=== PATIENT | male | born 1935 | race Asian ===

== ENCOUNTER 2017-04-21 05:07 | Emergency (ER) | payer MEDICARE, OTHER ==
[2017-04-21] MEDS ORDERED: predniSONE 20 MG TABLET PO STA (05:15)
[2017-04-21] MEDS ORDERED: IPRATROPIUM/ALBUTEROL 3 ML NEB INH STA (05:15)
[2017-04-21] MEDS ORDERED: predniSONE 20 MG TABLET ONE (05:21)
[2017-04-21] MEDS ORDERED: IPRATROPIUM/ALBUTEROL 3 ML NEB INH ONE (05:24)
--- NOTE | 2017-04-21 05:34 | ED Physician Documentation ---
PD HPI DYSPNEA - Stated complaint Stated Complaint: SHORTNESS OF BREATH - Chief complaint Chief Complaint: Resp - History obtained from History obtained from: Patient, Family - History of Present Illness Timing - onset: How many days ago (3) Timing - onset during: Rest Timing - details: Gradual onset, Still present Inciting event(s): URI Improved by: O2, Inhaler/neb Associated symptoms: Cough, Wheezing Similar symptoms before: Work up / diagnostics, Treatment, Follow up Recently seen: Not recently seen - Additional information Additional information: Patient is a 81 year old male with a history of severe copd who is presenting to the emergency department for shortness of breath. patient states that for the last three days he has been progressively worse and has also felt congested. Patient states that he has been compliant with his medications. Patient denies any chest pain, and fevers, nausea or vomiting. Review of Systems Constitutional: denies: Fever, Chills Eyes: denies: Decreased vision Ears: denies: Ear pain, Drainage/discharge Nose: denies: Rhinorrhea / runny nose Throat: denies: Sore throat Cardiac: denies: Chest pain / pressure, Palpitations Respiratory: reports: Dyspnea, Cough, Wheezing GI: denies: Abdominal Pain, Nausea, Vomiting : denies: Dysuria, Frequency Skin: denies: Rash, Lesions Musculoskeletal: denies: Extremity pain, Extremity swelling Neurologic: denies: Generalized weakness, Focal weakness, Numbness Immunocompromised: denies: Immunocompromised PD PAST MEDICAL HISTORY - Past Medical History Cardiovascular: Hypertension Respiratory: COPD, Emphysema Endocrine/Autoimmune: HyPOthyroidism GI: None : Benign prostate hypertrophy, Retention, Indwelling catheter HEENT: Chronic vision loss Psych: None Musculoskeletal: None Derm: None - Past Surgical History Past Surgical History: Yes General: Colonoscopy Ortho: Other - Present Medications Home Medications: Ambulatory Orders Medication Instructions Recorded Confirmed Levothyroxine [Synthroid] 100 mcg PO DAILY 11/02/15 04/21/17 Losartan/Hydrochlorothiazide 1 tab PO DAILY 11/02/15 04/21/17 [Losartan-Hctz 100-12.5 mg Tab] Albuterol Sulfate [Proair Hfa] 8.5 inh INH TID 12/11/15 04/21/17 Prednisone 60 mg PO DAILY 5 Days 04/21/17 Tiotropium [place] [Spiriva] 1 inh INH DAILY 04/21/17 04/21/17 amLODIPine [Norvasc] 5 mg PO ONCE 04/21/17 04/21/17 - Allergies Allergies/Adverse Reactions: Allergies Allergy/AdvReac Type Severity Reaction Status Date / Time No Known Drug Allergies Allergy Verified 04/21/17 05:14 - Social History Does the pt smoke?: No Smoking Status: Former smoker Does the pt drink ETOH?: No Does the pt have substance abuse?: No - Immunizations Immunizations are current?: Yes - POLST Patient has POLST: No PD ED PE NORMAL - Vitals Vital signs reviewed: Yes - General General: Alert and oriented X 3, Well developed/nourished - HEENT HEENT: Atraumatic, PERRL, Moist mucous membranes - Neck Neck: Supple, no meningeal sign, No JVD - Cardiac Cardiac: RRR, No murmur - Abdomen Abdomen: Soft, Non tender, Non distended - Derm Derm: Normal color, Warm and dry, No rash - Extremities Extremities: No deformity, No tenderness to palpate, No edema - Neuro Neuro: Alert and oriented X 3, concrete puddler 2-12 intact, No motor deficit, No sensory deficit, Normal speech - Psych Psych: Normal mood, Normal affect PD ED PE EXPANDED - Respiratory Respiratory: Labored, Accessory mm use, Wheezing, Right upper lobe, Right middle lobe, Right lower lobe, Left upper lobe, Left lower lobe Results - Vitals Vitals: Vital Signs - 24 hr 04/21/17 04/21/17 04/21/17 05:11 05:30 06:08 Temperature 36.7 C Heart Rate 97 80 92 Respiratory 18 16 17 Rate Blood Pressure 130/89 H 111/74 O2 Saturation 95 94 Oxygen O2 Source Room air - Rads (name of study) chest x-ray Radiology: Final report received (hyperinflation, no infiltrates) PD MEDICAL DECISION MAKING - ED course Complexity details: reviewed old records, reviewed results, re-evaluated patient , considered differential, d/w patient, d/w family ED course: Patient was seen and examined at bedside. Patient was oxygenating well on room air. Patient was treated with three duonebs and prednisone 60mg. Patient was sent for imaging. When patient returned the results were reviewed. there was no sign of infiltrate or pneumonia. Patient stated that he was feeling much better and asking to go home. Patient was discharged without hypoxia in stable condition. Patient and family felt comfortable with the plan. Departure - Departure Disposition: 01 Home, Self Care Clinical Impression: Moderate COPD (chronic obstructive pulmonary disease), COPD exacerbation Condition: Good Instructions: COPD Dc Follow-Up: Carlos Smith MD [Primary Care Provider] - Within 3 Days Prescriptions: Prednisone 60 mg PO DAILY 5 Days Comments: Your symptoms today are being caused by a copd exacerbation. You had your first dose of steroids today and you will take them for the next five days. You should call your doctor today to schedule a follow up appointment this week. You should continue with your other copd therapies. You should return to the emergency department at any time for new, worsening or uncontrollable symptoms.
--- NOTE | 2017-04-21 05:39 | XRAY Preliminary Report ---
Exam: XR Chest 2 View PA/LAT IMPRESSION: COPD without acute process seen in the chest. [facility] SITE ID: [id number]
--- NOTE | 2017-04-21 05:41 | XRAY Report ---
EXAM: CHEST RADIOGRAPHY EXAM DATE: 04/21/2017 05:31 AM. CLINICAL HISTORY: Copd, cough. COMPARISON: 02/26/2011. TECHNIQUE: 2 views. FINDINGS: Lungs/Pleura: Large volumes. No focal opacities evident. No pneumothorax or pleural effusion. Mediastinum: Within exam limitations, cardiomediastinal contour is normal. Other: None. IMPRESSION: COPD without acute process seen in the chest. [facility] Referring Provider Line: [phone] SITE ID: [id number]
[2017-04-21 06:09] VITALS: BP 111/74
== END 2017-04-21 06:25 | disposition home or self-care (01) ==
LOC: ED 05:07
DX: J44.1 Chronic obstructive pulmonary disease with (acute) exacerbation (principal); I10 Essential (primary) hypertension; E03.9 Hypothyroidism, unspecified; N40.0 Benign prostatic hyperplasia without lower urinary tract symptoms; Z87.891 Personal history of nicotine dependence
CPT/HCPCS: 71020; 94640; 99283; 99284; J7512; J7620

== ENCOUNTER 2021-08-30 07:25 | Day surgery (SDC) | payer MEDICARE, OTHER ==
[~2021-08-30 07:25] MED LIST: CYCLOPENTOLATE 1% OPHTH DROPS 2 ML ONE; KETOROLAC 0.45% OPHTH DROPS ONE; PHENYLEPHRINE 2.5% OPHTH 2 ML DROPS ONE; PROPARACAINE 0.5% OPHTH DROPS 15 ML ONE
[2021-08-30] MEDS ORDERED: LACTATED RINGERS 1,000 ML IV ONE ×2 (07:46→08:57)
[2021-08-30] MEDS ORDERED: TRIAMCIN/MOXIFLOX OPHTHALMIC 0.6 ML VIAL IO ONE ×2 (07:50→08:50)
[2021-08-30] MEDS ORDERED: BRIMONIDINE 0.2% OPHTH DROPS 5 ML ONE (07:54)
[2021-08-30] MEDS ORDERED: TIMOLOL 0.5% OPHTH DROPS ONE (07:57)
[2021-08-30] MEDS ORDERED: HYDROmorphone 0.5 MG/0.5 ML SYRINGE IVP PRN (08:04)
[2021-08-30] MEDS ORDERED: NALOXONE 0.4 MG/ML VIAL IVP PRN (08:04)
[2021-08-30] MEDS ORDERED: METOCLOPRAMIDE 10 MG/2 ML VIAL IVP PRN (08:04)
[2021-08-30] MEDS ORDERED: ePHEDrine 50 MG/ML VIAL IVP PRN (08:04)
[2021-08-30] MEDS ORDERED: MORPHINE 2 MG/ML CARPUJECT IVP PRN (08:04)
[2021-08-30] MEDS ORDERED: ONDANSETRON 4 MG/2 ML VIAL IVP PRN (08:04)
[2021-08-30] MEDS ORDERED: ATROPINE ABBOJECT 1 MG/10 ML SYRINGE IVP PRN (08:04)
[2021-08-30] MEDS ORDERED: fentaNYL 100 MCG/2 ML VIAL IVP PRN (08:04)
--- NOTE | 2021-08-30 08:17 | ANESTHESIA ---
Pre-Anesthesia VS, & Labs - Diagnosis left eye cataract - Procedure left CATIOL Vital Signs: Temp Pulse Resp BP Pulse Ox 36.6 C 77 18 151/67 H 94 08/30/21 07:46 08/30/21 07:46 08/30/21 07:46 08/30/21 07:46 08/30/21 07:46 Height: 5 ft 5 in Weight (kg): 64 kg Body Mass Index: 23.4 BMI Classification: Healthy weight - NPO >8 hours - Lab Results Lab results reviewed: Yes Home Medications and Allergies Home Medications: Ambulatory Orders Fluticasone/Vilanterol [Breo Ellipta 100-25 Mcg INH] 1 each IH DAILY 08/29/21 Active Medications Atropine Sulfate (Atropine Abboject 1 Mg/10 Ml Syringe) 0.5 mg IVP Q5M PRN PRN Reason: Bradycardia Stop: 08/31/21 08:04 Ephedrine Sulfate (Ephedrine 50 Mg/Ml Vial) 10 mg IVP Q5M PRN PRN Reason: HYPOTENSION Stop: 08/31/21 08:04 Fentanyl (Fentanyl 100 Mcg/2 Ml Vial) 25 - 50 mcg IVP Q5M PRN PRN Reason: BREAKTHROUGH PAIN (2nd Choice) Stop: 08/31/21 08:04 Hydromorphone HCl (Hydromorphone 0.5 Mg/0.5 Ml Syringe) 0.2 - 0.6 mg IVP Q5M PRN PRN Reason: PAIN (First Choice) Stop: 08/31/21 08:04 Lactated Ringer's (Lr) 1,000 mls @ 100 mls/hr IV .Q10H CHIKA Stop: 08/30/21 18:59 Metoclopramide HCl (Metoclopramide 10 Mg/2 Ml Vial) 10 mg IVP Q6HR PRN PRN Reason: N/V not relieved by Zofran Morphine Sulfate (Morphine 2 Mg/Ml Carpuject) 2 - 4 mg IVP Q5M PRN PRN Reason: PAIN (3rd Choice) Stop: 08/31/21 08:04 Naloxone HCl (Naloxone 0.4 Mg/Ml Vial) 0.1 mg IVP Q2M PRN PRN Reason: RESP RATE <8 Stop: 08/31/21 08:04 Ondansetron HCl (Ondansetron 4 Mg/2 Ml Vial) 4 mg IVP ONCE PRN PRN Reason: N/V (First Choice) Stop: 08/31/21 08:04 Levothyroxine [Synthroid] 100 mcg PO DAILY 11/02/15 Albuterol Sulfate [Proair Hfa] 8.5 inh INH TID 12/11/15 Tiotropium [place] [Spiriva] 1 inh INH DAILY 04/21/17 amLODIPine [Norvasc] 5 mg PO ONCE 04/21/17 Fluticasone/Vilanterol [Breo Ellipta 100-25 Mcg INH] 1 each IH DAILY 08/29/21 Allergies/Adverse Reactions: Allergies Allergy/AdvReac Type Severity Reaction Status Date / Time No Known Drug Allergies Allergy Verified 04/21/17 05:14 Anes History & Medical History - Anesthetic History Anesthesia Complications: reports: No previous complications Family history of Anesthesia Complications: Denies Family history of Malignant Hyperthermia: Denies - Medical History Cardiovascular: reports: Hypertension Pulmonary: reports: COPD, Emphysema Gastrointestinal: reports: None Urinary: reports: Benign prostate hypertrophy Musculoskeletal: reports: None Endocrine/Autoimmune: reports: HyPOthyroidism Skin: reports: None Smoking Status: Former smoker - Surgical History General: reports: Colonoscopy Urologic: reports: Prostatic surgery Orthopedic: reports: Other Exam General: Alert, Oriented x3, Cooperative, No acute distress Dental: Dentures full Upper, Partials Lower Mouth Openin Fingerbreadth Neck Mobility: Normal Mallampati classification: II Respiratory: Lungs clear, Normal breath sounds, No respiratory distress, No accessory muscle use Cardiovascular: Regular rate, Normal S1, Normal S2, No murmurs Plan Anesthesia Type: MAC Consent for Procedure(s) Verified and Reviewed: Yes Code Status: Attempt Resuscitation ASA classification: 2-Mild systemic disease Is this case an emergency?: No
[2021-08-30] MEDS ORDERED: MIDAZOLAM 2 MG/2 ML VIAL ONE (08:22)
[2021-08-30] MEDS ORDERED: fentaNYL 100 MCG/2 ML VIAL ONE (08:22)
[2021-08-30] MEDS ORDERED: BRIMONIDINE 0.2% OPHTH DROPS 5 ML OPTH ONE (08:50)
[2021-08-30] MEDS ORDERED: BSS/LIDOCAINE/EPINEPHRINE 1 ML SYRINGE IO ONE (08:50)
[2021-08-30] MEDS ORDERED: PROPARACAINE 0.5% OPHTH DROPS 15 ML EACHEYE ONE (08:50)
[2021-08-30] MEDS ORDERED: EPINEPHrine 1 MG/ML AMP IR ONE (08:50)
[2021-08-30] MEDS ORDERED: TIMOLOL 0.5% OPHTH DROPS OPTH ONE (08:50)
[2021-08-30] MEDS ORDERED: LACTATED RINGERS 1,000 ML IV SCH (09:00)
--- NOTE | 2021-08-30 09:05 | ANESTHESIA POST OP EVALUATION ---
Anesthesia Post Eval - Post Anesthesia Eval Vitals: Last Vital Signs Temp 36.6 C 08/30/21 08:55 Pulse 83 08/30/21 08:55 Resp 12 08/30/21 08:55 BP 113/63 08/30/21 08:55 Pulse Ox 100 08/30/21 08:55 CV Function Including HR & BP: Stable Pain Control: Satisfactory Nausea & Vomiting: Negative Mental Status: Baseline Respiratory Status: Airway Patent Hydration Status: Satisfactory Anesthesia Complications: None
[2021-08-30 09:16] VITALS: BP 116/66
--- NOTE | 2021-08-30 10:11 | OPERATIVE REPORT ---
Operative Report - Other Other Information/Narrative: Date of Surgery: 08/30/21 Preop Dx: Visually significant cataract left eye. This was the first cataract surgery. Postop Dx: Same Procedure: Phacoemulsification with posterior chamber toric intraocular lens implant left eye Surgeon: Dr. Oscar Alonso Anesthesia: Monitored anesthesia care Complications: None Operative Indications: This is a 86-year-old M with progressive vision loss in the left eye due to 2+ nuclear sclerotic cataract. Best corrected visual ac uity was 20/25 with glare to 20/40 vision in the left eye. Indications for surgery were: - Overall decrease in vision - Difficulty reading - Difficulty seeing street signs - Difficulty driving in low light or at night The patient was consented at length concerning the risks and benefits of cataract surgery after which the patient expressed a desire to proceed with surgery. Operative Procedure: The patients cornea was marked in the pre-surgical area to indicate the axis for the toric intraocular lens. The patient was taken into OR#3 and placed under monitored anesthesia care. A surgical time-out was conducted confirming correct patient, correct procedure, and correct surgical site. The patient was given topical anesthesia and then prepped and draped in the usual sterile fashion. The eye was entered at the 6 and 3 oclock positions. Intracameral Shugarcaine was injected into the anterior chamber followed by a dispersive viscoelastic. A continuous-tear curvilinear capsulorhexis was performed. The nucleus was hydrodissected and phacoemulsified. The cortex was evacuated using automated infusion and aspiration. A cohesive viscoelastic was injected into the capsular bag and a 20.0 diopter toric intraocular lens was inserted into the bag and rotated to axis 166. Infusion and aspiration were used to evacuate the viscoelastic materials from the eye and the IOL was verified to remain on axis. The wounds were hydrated and the eye inflated to physiologic pressure using balanced salt solution. Approximately 0.25ml of a mixture of triamcinolone and moxifloxacin was injected trans- sclerally into the vitreous in the inferotemporal quadrant using a 30 gauge cannula. An additional 0.55ml of a mixture of triamcinolone and moxifloxacin was injected subconjunctivally in the superior quadrant for infection and inflammation prophylaxis. Wound integrity was checked with Weck-Melva sponges and the IOL axis was once again verified to be on the correct axis. The patient was taken from the operating room in good condition and given post-op instructions.
== END 2021-08-30 07:26 | disposition home or self-care (01) ==
LOC: SDS 07:25
PROVIDERS: ATTEND Ophthalmology
DX: H25.812 Combined forms of age-related cataract, left eye (principal); J43.9 Emphysema, unspecified; Z87.891 Personal history of nicotine dependence; N40.0 Benign prostatic hyperplasia without lower urinary tract symptoms; E03.9 Hypothyroidism, unspecified; Z79.899 Other long term (current) drug therapy
CPT/HCPCS: 66984; A9270; J3490; J7120; V2632

== ENCOUNTER 2021-11-05 08:00 | Outpatient (CLI) | payer MEDICARE, OTHER | END 2021-11-05 23:59 | disposition home or self-care (01) | LOC: LAB.S 08:00 | PROVIDERS: ATTEND Registered Nurse | DX: J44.1 Chronic obstructive pulmonary disease with (acute) exacerbation (principal); Z20.822 Contact with and (suspected) exposure to COVID-19 ==

== ENCOUNTER 2022-03-04 08:00 | Outpatient (CLI) | payer MEDICARE, OTHER ==
--- NOTE | 2022-03-04 13:56 | XRAY Report ---
PROCEDURE: Chest 2 View X-Ray INDICATIONS: DYSPNEA UPON EXERTION TECHNIQUE: 2 view(s) of the chest. COMPARISON: None. FINDINGS: Surgical changes and devices: None. Lungs and pleura: No pleural effusions or pneumothorax. Lungs are clear. The lung volumes are larg e and the diaphragms are flattened suggesting emphysematous change. Mediastinum: Mediastinal contours are normal. Heart size is normal. Bones and chest wall: No suspicious bony abnormalities. Soft tissues appear unremarkable. IMPRESSION: Acute pulmonary findings. Emphysematous change. Reviewed by: Cecilia Pro MD on 03/04/2022 1:55 PM PDT Approved by: Cecilia Pro MD on 03/04/2022 1:55 PM PDT Station ID: [id number]
== END 2022-03-04 23:59 | disposition home or self-care (01) ==
LOC: DI.S 08:00
PROVIDERS: ATTEND Physician Assistant
DX: R06.09 Other forms of dyspnea (principal); J43.9 Emphysema, unspecified
CPT/HCPCS: 36415; 80053; 83880; 85025

== ENCOUNTER 2022-03-04 10:06 | Outpatient (CLI) | payer MEDICARE, OTHER ==
[2022-03-04 14:18] LABS: BASOPHILS % (AUTO) 0.4 %; EOSINOPHILS # (AUTO) 0.1 10^3/uL (0.0-0.7); EOSINOPHILS % (AUTO) 1.8 %; HCT - HEMATOCRIT 47.2 % (42.0-52.0); HGB - HEMOGLOBIN 15.6 g/dL (14.0-18.0); MEAN CORPUSCULAR HEMOGLOBIN 31.1 pg (27.0-31.0); MEAN CORPUSCULAR HGB CONC 33.1 g/dL (32.0-36.0); MEAN CORPUSCULAR VOLUME 94.2 fL (80.0-94.0); MEAN PLATELET VOLUME 9.2 fL (7.4-11.4); MONOCYTES # (AUTO) 0.8 10^3/uL (0.0-1.0); NEUTROPHILS # (AUTO) 4.9 10^3/uL (1.5-6.6); NEUTROPHILS % (AUTO) 71.4 %; PLT - PLATELET COUNT 303 10^3/uL (130-450); RED BLOOD COUNT 5.01 10^6/uL (4.70-6.10); RED CELL DISTRIBUTION WIDTH 12.9 % (12.0-15.0); WHITE BLOOD COUNT 6.8 x10^3/uL (4.8-10.8)
[2022-03-04 14:33] LABS: ALBUMIN 4.2 g/dL (3.2-5.5); ALBUMIN/GLOBULIN RATIO 1.4 (1.0-2.2); CALCIUM 9.2 mg/dL (8.5-10.3); CREATININE 0.9 mg/dL (0.6-1.2); POTASSIUM 3.9 mmol/L (3.5-5.0); TOTAL PROTEIN 7.3 g/dL (6.7-8.2)
== END 2022-03-04 10:07 | disposition home or self-care (01) ==
LOC: DI.S 10:06
PROVIDERS: ATTEND Physician Assistant
DX: R06.09 Other forms of dyspnea (principal)
CPT/HCPCS: 36415; 80053; 83880; 85025

== ENCOUNTER 2022-03-07 06:14 | Day surgery (SDC) | payer MEDICARE, OTHER ==
[2022-03-07] MEDS ORDERED: CYCLOPENTOLATE 1% OPHTH DROPS 2 ML ONE (06:28)
[2022-03-07] MEDS ORDERED: KETOROLAC 0.45% OPHTH DROPS ONE (06:28)
[2022-03-07] MEDS ORDERED: PHENYLEPHRINE 2.5% OPHTH 2 ML DROPS ONE (06:28)
[2022-03-07] MEDS ORDERED: PROPARACAINE 0.5% OPHTH DROPS 15 ML ONE (06:29)
[2022-03-07] MEDS ORDERED: LACTATED RINGERS 1,000 ML IV ONE (06:46)
[2022-03-07] MEDS ORDERED: TRIAMCIN/MOXIFLOX OPHTHALMIC 0.6 ML VIAL IO ONE ×2 (07:18→07:46)
[2022-03-07] MEDS ORDERED: TIMOLOL 0.5% OPHTH DROPS ONE (07:19)
[2022-03-07] MEDS ORDERED: BRIMONIDINE 0.2% OPHTH DROPS 5 ML ONE (07:19)
[2022-03-07] MEDS ORDERED: EPINEPHrine 1 MG/ML AMP ONE (07:19)
[2022-03-07] MEDS ORDERED: BSS/LIDOCAINE/EPINEPHRINE 1 ML VIAL ONE (07:20)
[2022-03-07] MEDS ORDERED: MIDAZOLAM 2 MG/2 ML VIAL ONE (07:23)
[2022-03-07] MEDS ORDERED: EPINEPHrine 1 MG/ML AMP IR ONE (07:45)
[2022-03-07] MEDS ORDERED: BRIMONIDINE 0.2% OPHTH DROPS 5 ML OPTH ONE (07:45)
[2022-03-07] MEDS ORDERED: TIMOLOL 0.5% OPHTH DROPS OPTH ONE (07:45)
[2022-03-07] MEDS ORDERED: PROPARACAINE 0.5% OPHTH DROPS 15 ML EACHEYE ONE (07:46)
[2022-03-07] MEDS ORDERED: VANCOMYCIN OPHTHALMI 8MG/0.8ML 8 MG/0.8 ML SYRINGE IO ONE (07:46)
[2022-03-07] MEDS ORDERED: BSS/LIDOCAINE/EPINEPHRINE 1 ML SYRINGE IO ONE (07:46)
[2022-03-07] MEDS ORDERED: LACTATED RINGERS 950 ML IV ONE (07:54)
--- NOTE | 2022-03-07 08:02 | ANESTHESIA ---
Pre-Anesthesia VS, & Labs - Diagnosis R cataract - Procedure R PhacoIOL Vital Signs: Temp Pulse Resp BP Pulse Ox 36.4 C L 66 16 113/59 L 98 03/07/22 07:54 03/07/22 07:54 03/07/22 07:54 03/07/22 07:54 03/07/22 07:54 Height: 5 ft 6 in Weight (kg): 64.7 kg Body Mass Index: 23.0 BMI Classification: Healthy weight Home Medications and Allergies Home Medications: Ambulatory Orders Losartan/Hydrochlorothiazide [Losartan-Hctz 100-12.5 mg Tab] 1 tab DAILY 03/07/22 Levothyroxine [Synthroid] 100 mcg PO DAILY 11/02/15 Albuterol Sulfate [Proair Hfa] 8.5 inh INH TID 12/11/15 Tiotropium [place] [Spiriva] 1 inh INH DAILY 04/21/17 amLODIPine [Norvasc] 5 mg PO ONCE 04/21/17 Fluticasone/Vilanterol [Breo Ellipta 100-25 Mcg INH] 1 each IH DAILY 08/29/21 Losartan/Hydrochlorothiazide [Losartan-Hctz 100-12.5 mg Tab] 1 tab DAILY 03/07/22 Allergies/Adverse Reactions: Allergies Allergy/AdvReac Type Severity Reaction Status Date / Time No Known Drug Allergies Allergy Verified 03/07/22 06:45 Anes History & Medical History - Anesthetic History Anesthesia Complications: reports: No previous complications Family history of Anesthesia Complications: Denies Family history of Malignant Hyperthermia: Denies - Medical History Cardiovascular: reports: Hypertension Pulmonary: reports: COPD, Emphysema Gastrointestinal: reports: None Urinary: reports: Benign prostate hypertrophy Musculoskeletal: reports: None Endocrine/Autoimmune: reports: HyPOthyroidism Skin: reports: None Smoking Status: Former smoker - Surgical History General: reports: Colonoscopy Eyes Ears Nose Throat (EENT): reports: Cataracts Urologic: reports: Prostatic surgery Orthopedic: reports: Other Exam General: Alert, Oriented x3, Cooperative Dental: WNL Mouth Openin Fingerbreadth Neck Mobility: Normal Mallampati classification: II Thyromental Distance: 4-6 cm Respiratory: Lungs clear Cardiovascular: Regular rate Plan Anesthesia Type: MAC Consent for Procedure(s) Verified and Reviewed: Yes Code Status: Attempt Resuscitation ASA classification: 2-Mild systemic disease Is this case an emergency?: No
--- NOTE | 2022-03-07 08:08 | OPERATIVE REPORT ---
Operative Report - Other Other Information/Narrative: Date of Surgery: 03/07/22 Preop Dx: Visually significant cataract right eye. Cataract surgery was performed in the left eye on . Postop Dx: Same Procedure: Phacoemulsification with posterior chamber toric intraocular lens implant right eye Surgeon: Dr. Oscar Alonso Anesthesia: Monitored anesthesia care Complications: None Operative Indications: This is a 86-year-old M with progressive vision loss in the right eye due to 2+ nuclear sclerotic and 2+ cortical cataract. Best corrected visual acuity was 20/30 with glare to 20/50 vision in the right eye. Indications for surgery were: - Overall decrease in vision - Difficulty reading - Difficulty seeing street signs - Difficulty driving at night because of headlights from other vehicles The patient was consented at length concerning the risks and benefits of cataract surgery after which the patient expressed a desire to proceed with surgery. Operative Procedure: The patients cornea was marked in the pre-surgical area to indicate the axis for the toric intraocular lens. The patient was taken into OR#3 and placed under monitored anesthesia care. A surgical time-out was conducted confirming correct patient, correct procedure, and correct surgical site. The patient was given topical anesthesia and then prepped and draped in the usual sterile fashion. The eye was entered at the 6 and 3 oclock positions. Intracameral Shugarcaine was injected into the anterior chamber followed by a dispersive viscoelastic. A continuous-tear curvilinear capsulorhexis was performed. The nucleus was hydrodissected and phacoemulsified. The cortex was evacuated using automated infusion and aspiration. A cohesive viscoelastic was injected into the capsular bag and a 21.0 diopter toric intraocular lens was inserted into the bag and rotated to axis 176. Infusion and aspiration were used to evacuate the viscoelastic materials from the eye and the IOL was verified to remain on axis. The wounds were hydrated and the eye inflated to physiologic pressure using balanced salt solution. Approximately 0.25ml of a mixture of triamcinolone and moxifloxacin was injected trans-sclera lly into the vitreous in the inferotemporal quadrant using a 30 gauge cannula. An additional 0.55ml of a mixture of triamcinolone, moxifloxacin, and vancomycin was injected subconjunctivally in the superior quadrant for infection and inflammation prophylaxis. Wound integrity was checked with Weck-Melva sponges and the IOL axis was once again verified to be on the correct axis. The patient was taken from the operating room in good condition and given post-op instructions.
[2022-03-07 08:11] VITALS: BP 117/66
--- NOTE | 2022-03-07 15:56 | ANESTHESIA POST OP EVALUATION ---
Anesthesia Post Eval - Post Anesthesia Eval Vitals: Last Vital Signs Temp 36.7 C 03/07/22 08:10 Pulse 81 03/07/22 08:10 Resp 16 03/07/22 08:10 BP 117/66 03/07/22 08:10 Pulse Ox 97 03/07/22 08:10 CV Function Including HR & BP: Stable Pain Control: Satisfactory Nausea & Vomiting: Negative Mental Status: Baseline Respiratory Status: Airway Patent Hydration Status: Satisfactory Anesthesia Complications: None
== END 2022-03-07 06:15 | disposition home or self-care (01) ==
LOC: SDS 06:14
PROVIDERS: ATTEND Ophthalmology
DX: H25.811 Combined forms of age-related cataract, right eye (principal); J43.9 Emphysema, unspecified; E03.9 Hypothyroidism, unspecified; Z98.42 Cataract extraction status, left eye
CPT/HCPCS: 66984; A9270; J3490; J7120; V2632; V2787

== ENCOUNTER 2023-07-17 08:00 | Outpatient (CLI) | payer MEDICARE, OTHER ==
--- NOTE | 2023-07-17 21:11 | XRAY Report ---
PROCEDURE: Shoulder 3 View LT INDICATIONS: LEFT SHOULDER FRACTURE TECHNIQUE: 3 views of the shoulder were acquired. COMPARISON: 06/15/2023 FINDINGS: Bones: Healing proximal humeral fracture with remodeling of fracture line in bridging callus. Soft tissues: No suspicious soft tissue calcifications. IMPRESSION: Healing impacted proximal humeral fracture Reviewed by: Aly Mojica MD on 07/17/2023 8:10 PM [facility] Approved by: Aly Mojica MD on 07/17/2023 8:10 PM [facility] Station ID: [id number]
== END 2023-07-17 23:59 | disposition home or self-care (01) ==
LOC: DI.WOS 08:00
PROVIDERS: ATTEND Orthopaedic Surgery
DX: S42.222D 2-part displaced fracture of surgical neck of left humerus, subsequent encounter for fracture with routine healing (principal)

== ENCOUNTER 2023-08-12 08:00 | Outpatient (CLI) | payer MEDICARE, OTHER ==
--- NOTE | 2023-08-12 11:07 | XRAY Report ---
PROCEDURE: Shoulder 3 View LT INDICATIONS: LEFT SHOULDER FRACTURE TECHNIQUE: 3 views of the shoulder were acquired. COMPARISON: 07/17/2023 FINDINGS: Bones: Slight interval bone remodeling of the humeral neck fracture, which appears mildly displaced. Soft tissues: No suspicious soft tissue calcifications. The visualized lungs are within normal limi ts. IMPRESSION: Stable alignment with interval healing of the left humeral neck fracture. Reviewed by: Sancho Sahni on 08/12/2023 11:06 AM [facility] Approved by: Sancho Sahni on 08/12/2023 11:06 AM [facility] Station ID: [id number]
== END 2023-08-12 23:59 | disposition home or self-care (01) ==
LOC: DI.WOS 08:00
PROVIDERS: ATTEND Orthopaedic Surgery
DX: S42.222D 2-part displaced fracture of surgical neck of left humerus, subsequent encounter for fracture with routine healing (principal)

== ENCOUNTER 2023-09-18 07:00 | Outpatient (CLI) | payer MEDICARE, OTHER | END 2023-09-18 23:59 | disposition home or self-care (01) | LOC: LAB.S 07:00 | PROVIDERS: ATTEND Registered Nurse | DX: R21 Rash and other nonspecific skin eruption (principal) | CPT/HCPCS: 86787; 87252 ==

== ENCOUNTER 2023-09-18 11:06 | Outpatient (CLI) | payer MEDICARE, OTHER ==
[2023-09-19 09:09] LABS: VARICELLA-ZOSTER AB IGG >4000 index (Immune >165)
[2023-09-19 13:09] LABS: VARICELLA-ZOSTER AB IGM <0.91 index (0.00-0.90)
== END 2023-09-18 11:07 | disposition home or self-care (01) ==
LOC: LAB.S 11:06
PROVIDERS: ATTEND Registered Nurse
DX: R21 Rash and other nonspecific skin eruption (principal)
CPT/HCPCS: 86787

== ENCOUNTER 2025-07-15 11:20 | Inpatient (IN) ==
--- OUTSIDE RECORDS SUMMARY | 2025-07-15 11:42 | EXTERNAL MEDICAL SUMMARY RPT | Continuity of Care Document ---
Author Organization [facility] Address [address] [place] [address] [address] [place] [address] Phone Problems date description facility 2025-06-07 07:49 Malignant neoplasm of esophagus , unspecified [facility] 2025-06-07 07:49 Hypothyroidism, unspecified [facility] 2025-06-07 07:49 Retention of urine, unspecified [facility] 2025-06-07 07:50 Malignant neoplasm of esophagus , unspecified [facility] 2025-06-07 07:57 Malignant neoplasm of esophagus , unspecified [facility] 2025-06-07 08:00 Malignant neoplasm of esophagus , unspecified [facility] 2025-06-24 08:49 Malignant neoplasm of esophagus , unspecified [facility] 2025-06-24 08:49 Hypothyroidism, unspecified [facility] 2025-06-24 08:49 Retention of urine, unspecified [facility] 2025-06-24 08:50 Malignant neoplasm of esophagus , unspecified [facility] 2025-06-24 08:50 Hypothyroidism, unspecified [facility] 2025-06-24 08:50 Retention of urine, unspecified [facility] 2025-06-25 00:03 Malignant neoplasm of esophagus , unspecified [facility] 2025-06-25 00:03 Hypothyroidism, unspecified [facility] 2025-06-25 00:03 Retention of urine, unspecified [facility] 2025-06-27 14:13 Retention of urine, unspecified [facility] Results/Labs test date facility value unit notes Result panel 1 BILIRUBIN,DIRECT 2025-06-24 09:02 [facility] < 0.10 mg/dl As of March 2023 testing method has changed, this may include reference ranges. NUCLEATED RED BLOOD CELLS AUTO 2025-06-24 09:02 [facility] 0.0 /100wbc (missing) NRBC ABSOLUTE COUNT (AUTO) 2025-06-24 09:02 [facility] 0.00 x10 3/ul (missing) BASOPHILS # (AUTO) 2025-06-24 09:02 [facility] 0.1 10 3/ul (missing) EOSINOPHILS # (AUTO) 2025-06-24 09:02 [facility] 0.1 10 3/ul (missing) BILIRUBIN,TOTAL 2025-06-24 09:02 [facility] 0.4 mg/dl As of March 2023 testing method has changed, this may include reference ranges. CREATININE 2025-06-24 09:02 [facility] 1.0 mg/dl As of March 2023 testing method has changed, this may include reference ranges. FREE T4 (FREE THYROXINE) 2025-06-24 09:02 [facility] 1.19 ng/dl Biotin at >10 ng/mL concentration may cause significant interference. MONOCYTES # (AUTO) 2025-06-24 09:02 [facility] 1.3 10 3/ul (missing) LYMPHOCYTES # (AUTO) 2025-06-24 09:02 [facility] 1.3 10 3/ul (missing) HGB - HEMOGLOBIN 2025-06-24 09:02 [facility] 11.3 g/dl (missing) WHITE BLOOD COUNT 2025-06-24 09:02 [facility] 11.7 x10 3/ul (missing) GLUCOSE 2025-06-24 09:02 [facility] 110 mg/dl As of March 2023 testing method has changed, this may include reference ranges. FERRITIN 2025-06-24 09:02 [facility] 121.9 ng/ml (missing) ALT ALANINE AMINOTRANSFERASE 2025-06-24 09:02 [facility] 13 iu/l As of March 2023 testing method has changed, this may include reference ranges. SODIUM 2025-06-24 09:02 [facility] 133 mmol/l (missing) RED CELL DISTRIBUTION WIDTH 2025-06-24 09:02 [facility] 15.7 % (missing) CORTISOL 2025-06-24 09:02 [facility] 18.9 ug/dl CORTISOL REFERENCE RANGES DETERMINED BY TIME OF SPECIMEN COLLECTION: 8AM 5.0-23.0 ug/dL 4PM 3.0-16.0 ug/dL AFTER 8PM <50% OF 8AM VALUE AST ASPARTATE AMINOTRANSFERASE 2025-06-24 09: [facility] 19 iu/l As of March 2023 testing method has changed, this may include reference ranges. GLOBULIN 2025-06-24 09:02 [facility] 2.5 g/dl (missing) BUN - BLOOD UREA NITROGEN 2025-06-24 09: [facility] 26 mg/dl As of March 2023 testing method has changed, this may include reference ranges. ALBUMIN 2025-06-24 09:02 [facility] 3.2 g/dl As of March 2023 testing method has changed, this may include reference ranges. RED BLOOD COUNT 2025-06-24 09: [facility] 3.73 10 6/ul (missing) POTASSIUM 2025-06-24 09:02 [facility] 3.9 mmol/l As of March 2023 testing method has changed, this may include reference ranges. CARBON DIOXIDE - CO2 2025-06-24 09: [facility] 30 mmol/l As of March 2023 testing method has changed, this may include reference ranges. MEAN CORPUSCULAR HEMOGLOBIN 2025-06-24 09:02 [facility] 30.3 pg (missing) MEAN CORPUSCULAR HGB CONC 2025-06-24 09:02 [facility] 31.7 g/dl (missing) HCT - HEMATOCRIT 2025-06-24 09:02 [facility] 35.7 % (missing) PLT - PLATELET COUNT 2025-06-24 09:02 [facility] 399 10 3/ul (missing) ANION GAP 2025-06-24 09:02 [facility] 5.0 (missing) (missing) TOTAL PROTEIN 2025-06-24 09:02 [facility] 5.7 g/dl As of March 2023 testing method has changed, this may include reference ranges. GFR - MDRD 2025-06-24 09:02 [facility] 71 (missing) The IDMS-traceable MDRD Study Equation has been validated extensively in and populations between the ages of 18 and 70 with impaired kidney function (eGFR < 60 mL/min/1.73m2) and has shown good performance for patients with all common causes of kidney disease. Although this equation has not been validated for patients older than 70, an MDRD-derived eGFR may still be a useful tool for providers caring for patients older than 70. References: http://www.nkdep.n [place].gov/lab-evaluat ion/gfr/creatinine -stand ardization, last updated November 2011. ALKALINE PHOSPHATASE 2025-06-24 09:02 [facility] 75 iu/l As of March 2023 testing method has changed, this may include reference ranges. THYROID STIMULATING HORMONE 2025-06-24 09:02 [facility] 8.19 uiu/ml (missing) MEAN PLATELET VOLUME 2025-06-24 09:02 [facility] 8.8 fl (missing) CALCIUM 2025-06-24 09:02 [facility] 8.8 mg/dl As of March 2023 testing method has changed, this may include reference ranges. NEUTROPHILS # (AUTO) 2025-06-24 09:02 [facility] 8.9 10 3/ul (missing) MEAN CORPUSCULAR VOLUME 2025-06-24 09:02 [facility] 95.7 fl (missing) CHLORIDE 2025-06-24 09:02 [facility] 98 mmol/l As of March 2023 testing method has changed, this may include reference ranges. Social History date description facility
--- NOTE | 2025-07-15 12:17 | ED Physician Documentation ---
History of Present Illness Stated complaint Stated Complaint: DIZZINESS Chief complaint Chief Complaint: Neuro History obtained from History obtained from: Patient and Family Additonal information Additional information: Negrito Stearns is an 89-year-old male who was diagnosed with esophageal cancer in April of this year. He has been receiving Keytruda at [facility] and he is planning on getting another Keytruda infusion in 3 days as well as a follow- up CT scan in 10 days. He currently has an esophageal stent in place and he is drinking smoothies. He is not eating food. Last night he took 2 additional blood pressure pills to "see what they would do". He indicates to me this was done as he is anticipating taking his own life. He indicates that he is not in pain with the exception of some light epigastric pain. He has not discussed this with his oncologist. He has seen a counselor. The patient indicates that he has dizziness or lightheadedness when he goes to stand to walk. He is asymptomatic at rest [place] Coma Scale Assess Eye opening: Spontaneous Verbal response: Oriented Motor response: Obeys Commands Total score: 15 Review of Systems Patient denies fever chills sweats or sputum production he does have a shortness of breath with COPD unchanged he denies diarrhea or constipation denies swelling of extremities denies chest pain does have some epigastric abdominal pain Meds/Allgy Home Medications Ambulatory Orders Medication Instructions Recorded Confirmed albuterol sulfate 90 mcg/actuation 8.5 inh inhalation TID PRN 10/04/24 04/04/25 aerosol inhaler (ProAir HFA) shortness of breath or wh eezing amlodipine 10 mg tablet (Norvasc) 10 mg PO QDAY #90 ta bs 10/04/24 04/04/25 levothyroxine 88 mcg tablet 88 mcg PO QDAY #90 tabs 04/04/25 (Levoxyl) methocarbamol 500 mg tablet 500 mg PO TID #30 tabs 12/1404/04/25 fluticasone 250 mcg-salmeterol 50 1 inh inhalation BID 02/21/25 04/04/25 mcg/dose blistr powdr for inhalation umeclidinium 62.5 mcg/actuation 1 inh inhalation QDAY 02/21/25 04/04/25 blister powder for inhalation (Incruse Ellipta) losartan 100 1 tab PO QDAY #90 tabs 03/1704/04/25 mg-hydrochlorothiazide 25 mg tablet Allergies Allergies Allergy/AdvReac Type Severity Reaction Status Date / Time No Known Drug Allergies Allergy Verified 07/15/25 12:25 PFSH Active Problems All Active Problems (Updated 07/15/25 @ 15:33 by Trae Wood MD) Deliberate medication overdose (Acute) Esophageal cancer (Acute) Mass of esophagus determined by endoscopy (Acute) Esophageal dysphagia (Acute) Lumbar paraspinal muscle spasm (Acute) Pulmonary hypertension (Acute) Kidney function test abnormal (Acute) Long-term use of high-risk medication (Acute) Hypothyroidism (Acute) HTN (hypertension) (Acute) Moderate COPD (chronic obstructive pulmonary disease) (Acute) Encounter to establish care with new provider (Acute) Arrhythmia (Acute) Health care maintenance (Acute) Palpitations (Acute) Dyspnea (Acute) COPD exacerbation (Acute) Urinary tract infection associated with catheterization of urinary tract (Acute) Urinary retention (Acute) Surgical History Surgical History History of prostate surgery (2019) reduction Family History Family History Father Mother Sister Breast cancer Social History Social History Smoking Status: Unknown if ever smoked If you are a former smoker, when did you quit? (Date/Year): 20 years ago Number of Years Smoked: 30 How many cigarettes a day do you smoke? (20 cigarettes=1 Pk): 20 Second hand tobacco smoke exposure: Yes Do you dip or chew tobacco?: No Do you vape?: No Living arrangement: At home Marital Status: Single Living Condition: Alone Support Person: Yes Living Situation Details: Nephew and niece live downstairs Do you feel safe in your home environment?: Yes History of physical, verbal, emotional, or financial abuse?: No POLST Patient has POLST: No Exam Exam Vital Signs: Vital Signs x48h Temp Pulse Resp BP Pulse Ox O2 Flow Rate 07/15/25 15:14 61 76/47 L 95 2 07/15/25 13:44 58 L 18 90/49 L 95 2 07/15/25 13:31 61 18 87/51 L 98 2 07/15/25 13:13 2 07/15/25 13:11 60 92/42 L 95 2 07/15/25 12:36 66 89/48 L 95 07/15/25 11:56 36.8 C 56 L 18 87/46 L 82 L Thin 89-year-old male in no distress he is hard of hearing but answers questions appropriately his vital signs show hypotension with a blood pressure of 87/46 and a pulse ox of 82. His pulse is low at 56. He is afebrile. Constitutional normal general appearance and no apparent distress The patient has a thin body habitus but does not have speech latency or delay in execution of motor commands. 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 Psychiatry mental status grossly normal Skin skin color normal Results Vitals Vitals: Vital Signs - 24 hr 07/15/25 11:56 07/15/25 12:36 07/15/25 13:11 Temperature 36.8 C Temperature Source Temporal Artery Scan Pulse Rate 56 L 66 60 Respiratory Rate 18 Blood Pressure 87/46 L 89/48 L 92/42 L O2 Saturation 82 L 95 95 Oxygen Delivery Method O2 Source Room air Room air Nasal cannula If not protocol: Oxygen Flow, liters/minute 2 Pain Intensity 0 07/15/25 13:13 07/15/25 13:31 07/15/25 13:44 Temperature Temperature Source Pulse Rate 61 58 L Respiratory Rate 18 18 Blood Pressure 87/51 L 90/49 L O2 Saturation 98 95 Oxygen Delivery Method Nasal Cannula O2 Source Nasal cannula Nasal cannula If not protocol: Oxygen Flow, liters/minute 2 2 2 Pain Intensity 07/15/25 15:14 Temperature Temperature Source Pulse Rate 61 Respiratory Rate Blood Pressure 76/47 L O2 Saturation 95 Oxygen Delivery Method O2 Source Nasal cannula If not protocol: Oxygen Flow, liters/minute 2 Pain Intensity Oxygen O2 Source Nasal cannula Labs Labs: Laboratory Tests 07/15/25 12:33 WBC 14.6 H RBC 3.51 L Hgb 10.1 L Hct 32.5 L MCV 92.6 MCH 28.8 MCHC 31.1 L RDW 14.5 Plt Count 507 H MPV 9.2 Neut # (Auto) 12.7 H Lymph # (Auto) 0.8 L Cuming # (Auto) 1.0 Eos # (Auto) 0.0 Baso # (Auto) 0.0 Absolute Nucleated RBC 0.00 Nucleated RBC % 0.0 Sodium 131 L Potassium 4.1 Chloride 97 L Carbon Dioxide 25 Anion Gap 9.0 BUN 40 H Creatinine 1.8 H Estimated GFR (MDRD) 36 L Glucose 161 H Calcium 10.6 H Total Bilirubin 0.3 AST 20 ALT 9 L Alkaline Phosphatase 69 Troponin I High Sens 8.4 Total Protein 6.1 L Albumin 3.1 L Globulin 3.0 Albumin/Globulin Ratio 1.0 Lipase 33 Rads (name of study) chest: Relevant Findings:: EMP independent interpretation of test (Blunting of the costal angles bilaterally findings of failure are subtle.) Interpretation: Impression: Small left and trace right pleural effusion with bilateral mid and lower lobe airspace opacities and cephalization of the pulmonary vascular findings are concerning for pulmonary edema Procedures IVC sono (time) 1210: Bedside IVC sono: IVC measures (cm) (1.67) and Euvolemia PD Medical Decision Making ED course Complexity details: reviewed old records, reviewed results, re-evaluated patient, considered differential, d/w patient and d/w family Reviewed Lab Results: We reviewed a complete blood count showing an elevated white blood cell count of 14.6 patient has had similar elevations previously over the past year he has a hemoglobin of 10 hematocrit of 32.5 these are decreased for this patient. Platelets are elevated at 507 the patient has not had thrombocytosis previously. Chemistries show a serum sodium low at 131 potassium is normal at 4.1 chloride low at 97 bicarb normal at 25 BUN is elevated at 40 creatinine elevated at 1.8 and these are new findings for this patient. A sensitive troponin is negative today at 8.4. This patient's blood work indicates he may have ongoing infection with elevated white blood cell count and potential infiltrate on his chest x-ray and in addition he has a developing anemia not present previously as well as renal failure developing not present previously. He did not have elevation in the troponin to suggest an acute coronary syndrome. His laboratory studies are consistent with the possibility of congestive heart failure. ED course: 89-year-old male with esophageal cancer and a stent in place appears acutely suicidal and has made an attempt with overdosing on blood pressure medication.His current symptoms are lightheadedness with standing he does have hypotension and I have interrogated his IVC with POCUS and found him to have a normal volume. We will check his electrolytes and fix any abnormals. I spoke with the patient's niece and her and she indicates that the patient does have an appointment to see a counselor. I spoke directly to the patient asking him if he wanted a counselor and he indicated that he is not think he needed a counselor today. This patient's laboratory abnormalities suggest he is beginning to fail and we did not find simple dehydration or simple electrolyte abnormality to account for his findings. He is now hypoxic and anemic with signs on his chest x-ray consistent with the possibility of congestive failure. At shift change his care is turned over to Dr. Aguilar anticipating further workup regarding his hypoxia. Discharge Plan Discharge Clinical Impression: Deliberate medication overdose Qualifiers: Encounter type: initial encounter Qualified Code(s): T50.902A - Poisoning by unspecified drugs, medicaments and biological substances, intentional self-harm, initial encounter Prescriptions: No Action levothyroxine [Levoxyl] 88 mcg tablet 88 mcg PO QDAY Qty: 90 3RF losartan-hydrochlorothiazide 100-25 mg tablet 1 tab PO QDAY Qty: 90 3RF albuterol sulfate [ProAir HFA] 90 mcg/actuation HFA aerosol inhaler 8.5 inh inhalation TID PRN (Reason: shortness of breath or wheezing) amlodipine [Norvasc] 10 mg tablet 10 mg PO QDAY Qty: 90 3RF fluticasone propion-salmeterol 250-50 mcg/dose blister with device 1 inh inhalation BID Incruse Ellipta 62.5 mcg/actuation blister with device 1 inh inhalation QDAY methocarbamol 500 mg tablet 500 mg PO TID Qty: 30 0RF Print Language: Indonesian Stand Alone Forms: PCP List
[2025-07-15 12:58] LABS: HCT - HEMATOCRIT 32.5 % (42.0-52.0); HGB - HEMOGLOBIN 10.1 g/dL (14.0-18.0); MEAN PLATELET VOLUME 9.2 fL (7.4-11.4); NRBC ABSOLUTE COUNT (AUTO) 0.00 x10^3/uL; NUCLEATED RED BLOOD CELLS AUTO 0.0 /100WBC; PLT - PLATELET COUNT 507 10^3/uL (130-450); RED CELL DISTRIBUTION WIDTH 14.5 % (12.0-15.0)
[2025-07-15] MEDS: SODIUM CHLORIDE 0.9% 300 ML IV STA (13:06)
[2025-07-15 13:19] LABS: ALT ALANINE AMINOTRANSFERASE 9.0 IU/L (10-60); AST ASPARTATE AMINOTRANSFERASE 20.0 IU/L (10-42); BUN - BLOOD UREA NITROGEN 40.0 mg/dL (6-20); CARBON DIOXIDE - CO2 25.0 mmol/L (21-32); CREATININE 1.8 mg/dL (0.6-1.3); GFR - MDRD 36.0 (>89)
--- NOTE | 2025-07-15 14:23 | XRAY Report ---
PROCEDURE: XR Chest 1V INDICATIONS: hypoxia TECHNIQUE: One view of the chest was acquired. COMPARISON: CXR on 03/04/2022 FINDINGS: Surgical changes and devices: None. Lungs and pleura: Small left pleural effusion and trace right pleural effusion. Bilateral mid and lower lobe airspace opacities with cephalization the pulmonary vasculature. Mediastinum: Mediastinal contours appear normal. Heart size is normal. Bones and chest wall: No suspicious bony lesions. Overlying soft tissues appear unremarkable. IMPRESSION: Small left and trace right pleural effusion with bilateral mid and lower lobe airspace opacities and cephalization the pulmonary vasculature. Findings are concerning for pulmonary edema. Reviewed by: Bharath Virgen MD on 07/15/2025 2:20 PM PDT Approved by: Bharath Virgen MD on 07/15/2025 2:20 PM PDT Station ID: [id number]
[2025-07-15] MEDS: SODIUM CHLORIDE 0.9% 1,000 ML IV STA ×2 (15:09→16:17)
[2025-07-15] MEDS: IPRATROPIUM/ALBUTEROL 3 ML NEB INH STA (15:51)
[2025-07-15] MEDS: methylPREDNISolone SUCCINATE 125 MG/2 ML VIAL IVP STA (15:51)
[2025-07-15] MEDS: MAG HYDROX/AL HYDROX/SIMETH 30 ML UDC PO STA (16:17)
--- NOTE | 2025-07-15 16:17 | ED Physician Documentation ---
ED Addendum Addendum Addendum: 89-year-old male, history of esophageal cancer, signed out to me by Dr. Wood. Patient receives his usual care at [facility]. He presents today after taking 30 mg of amlodipine last night instead of his regular 10. Today he is dizzy and hypotensive. He is also hypoxic, 82% on room air. History of COPD. Also found to have an acute kidney injury, baseline creatinine is around 1.0. He is at 1.8. At the time of shift change a DuoNeb was ordered, I ordered Solu-Medrol as well and a liter of IV fluids. He is feeling better after the nebulizer treatment. Still hypotensive, still hypoxic, no fevers. No cough. No clinical signs of pneumonia or indication for antibiotics. Likely will need to be monitored for at least 24 hours given his persistent hypotension. Also given his hypoxia, does not use oxygen at home and has acute kidney injury. Discussed the case with the hospitalist who accepts. This document was made in part using voice recognition software. While efforts are made to proofread this document, sound alike and grammatical errors may occur. Discharge Plan Discharge Patient Disposition: ED Place in Observation Condition: Stable Clinical Impression: Deliberate medication overdose, Hypoxia, Acute kidney injury, Acute hypotension Prescriptions: No Action levothyroxine [Levoxyl] 88 mcg tablet 88 mcg PO QDAY Qty: 90 3RF losartan-hydrochlorothiazide 100-25 mg tablet 1 tab PO QDAY Qty: 90 3RF albuterol sulfate [ProAir HFA] 90 mcg/actuation HFA aerosol inhaler 8.5 inh inhalation TID PRN (Reason: shortness of breath or wheezing) amlodipine [Norvasc] 10 mg tablet 10 mg PO QDAY Qty: 90 3RF fluticasone propion-salmeterol 250-50 mcg/dose blister with device 1 inh inhalation BID Incruse Ellipta 62.5 mcg/actuation blister with device 1 inh inhalation QDAY methocarbamol 500 mg tablet 500 mg PO TID Qty: 30 0RF Print Language: Vietnamese Stand Alone Forms: PCP List
--- NOTE | 2025-07-15 17:13 | HISTORY & PHYSICAL EXAMINATION ---
<Statement entered by Floyd Beavers DNP - 07/15/25 19:52> Patient was seen and examined by me with a separate encounter after being seen by DEVI student. I reviewed the student's documentation including patient history, physical examination, laboratory, imaging, clinical assessment and treatment plan. I have discussed the management of the patient with the student, and with the patient. There are no changes. Briefly, patient has esophageal cancer, and plans to take his own life with the remainder of his bottle of blood pressure medication. He was curious what this would feel like, so last night he took 30 mg of amlodipine. Poison control was contacted, they recommended EKG, blood pressure monitoring, supportive care. Will observe patient overnight and he will undergo MHE tomorrow when he is medically cleared Chief Complaint Chief Complaint Chief Complaint: Acute Hypotension History of Present Illness History Obtained From History obtained from: Patient and patient's niece/DPOA History of Present Illness HPI Comment/Other: Negrito is a 89 year old male with a recent esophageal cancer diagnosis (April 2025) that came in today due to acute hypotension secondary to deliberate medication overdose. Deliberate medication overdose - Suicidality He took 3 x amlodipine 10 mg tablets (30 mg) 10pm 07/14 saying that he "wanted to know what it would feel like to ." He states that he still wants to , and considered the overdose today to be a "trial run." He plans to "take a whole bottle" in the future. He is scheduled for chemo-infusion at [facility] Friday, 07/18. He has a CT to assess cancer prognosis the first week in July (in 10 days). Per RN convos with poison control: "Maintenance dose of fluids, pressers as needed. 12 hour monitor time. Patient family report medication overdose occurred about 2200 last night." "Advises to continue to monitor. Obtain EKG. consider pressers as Creatnine is elevated, concerned for renal profusion. continue to address BP and monitor for return to baseline." Suicidal Ideation He has been feeling hopeless since receiving his cancer diagnosis this April. That combined with his exertional dyspnea from COPD has made life less enjoyable. He feels limited in what he can do because of the COPD exacerbations with exertion and his difficulty swallowing from esophageal cancer. - He is too weak to leave the house. He can do puzzles at home, but is not able to enjoy the hobbies that he used to. - He is able to swallow mashed potatoes and apple sauce, sometimes soft carrots or meats. He feels unable to enjoy the foods he used to. Acute hypotension Secondary to deliberate medication overdose. Pt denies light-headedness or somnolence COPD Pt has a history of COPD that was first documented 03/2017. For which he has been prescribed a fluticasone-salmeterol BID and albuterol PRN inhalers. He does not use O2 at home. He has frequent exertional dyspnea that makes it difficult for him to leave home. He is not able to do the things he used to. He denies chest tightness. He reports feeling heartburn. Niece, DPJAHAIRA, present at bedside. Pt reports he has POLST. No records on file. We will request records of POLST and DPOA. Meds/Allgy Home Medications Ambulatory Orders Medication Instructions Recorded Confirmed albuterol sulfate 90 mcg/actuation 8.5 inh inhalation TID PRN 10/04/24 04/04/25 aerosol inhaler (ProAir HFA) shortness of breath or wh eezing amlodipine 10 mg tablet (Norvasc) 10 mg PO QDAY #90 ta bs 10/04/24 04/04/25 levothyroxine 88 mcg tablet 88 mcg PO QDAY #90 tabs 04/04/25 (Levoxyl) methocarbamol 500 mg tablet 500 mg PO TID #30 tabs 12/1404/04/25 fluticasone 250 mcg-salmeterol 50 1 inh inhalation BID 02/21/25 04/04/25 mcg/dose blistr powdr for inhalation umeclidinium 62.5 mcg/actuation 1 inh inhalation QDAY 02/21/25 04/04/25 blister powder for inhalation (Incruse Ellipta) losartan 100 1 tab PO QDAY #90 tabs 03/1704/04/25 mg-hydrochlorothiazide 25 mg tablet Allergies Allergies Allergy/AdvReac Type Severity Reaction Status Date / Time No Known Drug Allergies Allergy Verified 07/15/25 12:25 PFSH Active Problems All Active Problems Acute hypotension (Acute) Acute kidney injury (Acute) Hypoxia (Acute) Deliberate medication overdose (Acute) Esophageal cancer (Acute) Mass of esophagus determined by endoscopy (Acute) Esophageal dysphagia (Acute) Lumbar paraspinal muscle spasm (Acute) Pulmonary hypertension (Acute) Kidney function test abnormal (Acute) Long-term use of high-risk medication (Acute) Hypothyroidism (Acute) HTN (hypertension) (Acute) Moderate COPD (chronic obstructive pulmonary disease) (Acute) Encounter to establish care with new provider (Acute) Arrhythmia (Acute) Health care maintenance (Acute) Palpitations (Acute) Dyspnea (Acute) COPD exacerbation (Acute) Urinary tract infection associated with catheterization of urinary tract (Acute) Urinary retention (Acute) Surgical History Surgical History History of prostate surgery (2020) reduction Family History Family History Father Mother Sister Breast cancer Social History Social History (Updated 07/15/25 @ 16:09 by Trae Wood MD) Smoking Status: Unknown if ever smoked If you are a former smoker, when did you quit? (Date/Year): 20 years ago Number of Years Smoked: 30 How many cigarettes a day do you smoke? (20 cigarettes=1 Pk): 20 Second hand tobacco smoke exposure: Yes Do you dip or chew tobacco?: No Do you vape?: No Living arrangement: At home Marital Status: Single Living Condition: Alone Support Person: Yes Living Situation Details: Nephew and niece live downstairs Do you feel safe in your home environment?: Yes History of physical, verbal, emotional, or financial abuse?: No POLST Patient has POLST: Yes POLST on file?: No Review of Systems Status of ROS: 10 or more systems reviewed and unremarkable except as noted in history and below Constitutional Denies: Fever, Chills, Diaphoresis or Night sweats Ears, nose, mouth, and throat Reports: Hearing loss (Hard of hearing at baseline) and Difficulty swallowing Cardiovascular Reports: shortness of breath with exertion and Decreased exercise tolerance; Denies: Irregular heart rate, chest pain or palpitations Respiratory Reports: Shortness of breath, Cough and Wheezing Gastrointestinal Reports: Poor appetite, Heartburn and Difficulty swallowing; Denies: Nausea, Vomiting, Diarrhea, Constipation, Bloating, Melena or Blood in stool Neurological Denies: Confusion or Memory problems Psychiatric Reports: Hopelessness (Feels hopeless about esophageal cancer Dx) and Suicidal ideation Allergic/Immunologic Reports: Wheezing Exam Exam Vital Signs: Vital Signs x48h Temp Pulse Resp BP Pulse Ox O2 Flow Rate 07/15/25 17:32 73 97/41 L 95 2 07/15/25 16:45 70 94/50 L 97 2 07/15/25 16:28 67 98/45 L 97 2 07/15/25 15:52 68 18 2 07/15/25 15:14 61 76/47 L 95 2 07/15/25 13:44 58 L 18 90/49 L 95 2 07/15/25 13:31 61 18 87/51 L 98 2 07/15/25 13:13 2 07/15/25 13:11 60 92/42 L 95 2 07/15/25 12:36 66 89/48 L 95 07/15/25 11:56 36.8 C 56 L 18 87/46 L 82 L Constitutional normal general appearance, no apparent distress, average body habitus and alert Respiratory breath sounds equal bilaterally, normal respiratory effort, clear to auscultation bilaterally, no wheezes, no rales and no use of accessory muscles Cardiovascular normal heart rate noted, regular rhythm noted, no gallop, no rub, no murmur and no JVD Gastrointestinal abdomen soft to palpation and nontender to palpation Psychiatry oriented x3 and cooperative Skin skin color normal Conclusion/Plan Problem List (1) Deliberate medication overdose: Plan: Patient presented to ER today with niece after ingesting 30 mg of amlodipine on 07/14 2200. Poison control contacted by ED RN 07/15. Poison control advised fluid maintenance, pressers PRN, and continue to monitor vitals. Patient currently alert and oriented x 4. BP remains hypotensive. Pt reports active suicidality. - EKG ordered - Administer fluids: 100 mL/hr - Continue monitoring vitals. - Observation: 1:1 due to current suicidality - SW to meet with patient 07/16 Qualifiers: Encounter type: initial encounter Qualified Code(s): T50.902A - Poisoning by unspecified drugs, medicaments and biological substances, intentional self-harm, initial encounter (2) Acute hypotension: Plan: Secondary to deliberate medication overdose. See notes above. (3) Esophageal cancer: Plan: Pt diagnosed in April 2025. Reports dysphagia. Receiving care at [facility]. Chemo infusion scheduled for 07/18. CT to determine prognosis scheduled for first week in July. Diet: minced and moist Consult: Speech for swallow testing Lab Results Lab results reviewed: Yes 07/15/25 12:33 07/15/25 12:33
[2025-07-15] MEDS ORDERED: ONDANSETRON 4 MG/2 ML VIAL IVP PRN (17:32)
[2025-07-15] MEDS ORDERED: SODIUM CHLORIDE FLUSH 0.9% 10 ML SYRINGE IVP PRN (17:32)
[2025-07-15] MEDS ORDERED: ONDANSETRON ODT 4 MG TABLET TL PRN (17:32)
[2025-07-15] MEDS ORDERED: ACETAMINOPHEN 325 MG TABLET PO PRN (17:32)
--- NOTE | 2025-07-15 17:41 | ADVANCE CARE PLANNING NOTE ---
Advance Care Planning Planning Encounter Date: 07/15/25 Time: 17:34 Purpose: Determine suicide risk, goals of care Parties in Attendance: RECRUITING ASSOCIATE, PA student, patient's niece/DPOA Decisional Capacity of the Patient: Full Encounter Subjective/Patient's Story: 89-year-old male who is becoming increasingly debilitated due to his COPD and new diagnosis of cancer. He states that most of his days are spent doing puzzles and watching TV as he does not have the energy to do anything else. Objective/Medical Story: Patient has history of COPD, and was diagnosed with esophageal cancer in April of this year. He has been receiving Keytruda at [facility], with his next dose in 3 days. He has a follow-up CT scan scheduled in 10 days. He has been worked up by speech therapy with modified barium swallow and has had an esophageal stent placed. He is not eating much solid food, but he is able to drink smoothies and occasionally eat mashed potatoes or meat that is not too stringy. He reports that he realizes that his life is coming to an end and he wants to have this off before his quality of life drops anymore. His plan is to take a bottle of his amlodipine. He reports that last night he tried taking 3 pills to see what it would feel like. Goals of Care: Patient feels he has no point left in life. He is severely restricted in his eating, and is now weak enough that he does not really leave the house. He states that he still plans to kill himself when he leaves. He expresses no remorse or distress when saying this. He has simply made up his mind Plan: Patient will be monitored in the hospital as directed by poison control, likely for the next day. Additional Discussion: Additional discussion on goals of care needs to be had. Niece reports that he has a follow-up CT scan in 10 days, which will give them an accurate prognosis of his condition. He reports he has a POLST, but we do not have it on file. I cannot in good conscience complete a POLST form at this time given his very clear suicidal intent. Will continue discussions on long-term goals of care, I believe that he would be willing to enroll in hospice, but he does not have an accurate prognosis. I have encouraged further discussion between the patient and his niece for further goals going forward Code Status: Attempt Resuscitation Time spent on advance care plannin
[2025-07-15] MEDS ORDERED: LIDOCAINE VISCOUS 2% 15 ML UDC MM PRN (18:55)
[2025-07-15] MEDS: LACTATED RINGERS 1,000 ML IV SCH (19:03)
[2025-07-15] MEDS: SODIUM CHLORIDE FLUSH 0.9% 10 ML SYRINGE IVP SCH (19:04)
[2025-07-15] MEDS: IPRATROPIUM/ALBUTEROL 3 ML NEB INH PRN (20:04)
[2025-07-15] MEDS: FORMOTEROL FUMARATE NEB 20 MCG/2 ML INH SCH (20:04)
[2025-07-15] MEDS: BUDESONIDE 0.5 MG/2 ML NEB INH SCH (20:05)
[2025-07-15] MEDS: LACTATED RINGERS 1,000 ML IV ONE (21:04)
[2025-07-15] MEDS: MAG HYDROX/AL HYDROX/SIMETH 30 ML UDC PO PRN (22:15)
[2025-07-16 05:50] LABS: HCT - HEMATOCRIT 28.2 % (42.0-52.0); HGB - HEMOGLOBIN 8.9 g/dL (14.0-18.0); MEAN PLATELET VOLUME 9.2 fL (7.4-11.4); NRBC ABSOLUTE COUNT (AUTO) 0.00 x10^3/uL; NUCLEATED RED BLOOD CELLS AUTO 0.0 /100WBC; PLT - PLATELET COUNT 431 10^3/uL (130-450); RED CELL DISTRIBUTION WIDTH 14.4 % (12.0-15.0)
[2025-07-16 06:10] LABS: BUN - BLOOD UREA NITROGEN 63.0 mg/dL (6-20); CARBON DIOXIDE - CO2 25.0 mmol/L (21-32); CREATININE 2.1 mg/dL (0.6-1.3); GFR - MDRD 30.0 (>89)
[2025-07-16 06:11] LABS: CK- CREATINE KINASE 28 IU/L (30-223); ETOH - ETHANOL < 10.0 mg/dL
[2025-07-16 06:45] LABS: GLUCOSE, URINE (UA) NEGATIVE (NEGATIVE); KETONES,URINE (UA) NEGATIVE (NEGATIVE); OCCULT BLOOD,URINE NEGATIVE (NEGATIVE)
[2025-07-16 07:10] LABS: AMPHETAMINE SCREEN,URINE NEGATIVE (NEGATIVE); BARBITURATE SCREEN,UR NEGATIVE (NEGATIVE); BENZODIAZEPINES SCREEN, URINE NEGATIVE (NEGATIVE); BUPRENORPHINE SCREEN, URINE NEGATIVE (NEGATIVE); COCAINE SCREEN URINE NEGATIVE (NEGATIVE); METHADONE SCREEN, URINE NEGATIVE (NEGATIVE); METHAMPHETAMINES SCREEN, URINE NEGATIVE (NEGATIVE); OPIATE SCREEN, URINE NEGATIVE (NEGATIVE); THC CANNABINOID SCREEN, URINE NEGATIVE (NEGATIVE)
--- NOTE | 2025-07-16 08:46 | PROVIDER PROGRESS NOTE ---
<Statement entered by Floyd Beavers DNP - 07/16/25 19:27> Patient was seen and examined by me with a separate encounter after being seen by DEVI student. I reviewed the student's documentation including patient history, physical examination, laboratory, imaging, clinical assessment and treatment plan. I have discussed the management of the patient with the student, and with the patient. There are no changes. After time of this note, multiple advance care planning discussions were held with family. Case was discussed with social work, who contacted resources with the state and determination was made that patient may Enroll in hospice. Subjective Prog Note Date Prog Note Date: 07/16/25 Prog Note Time: 08:45 Subjective Pt reports feeling: No change Subjective: Negrito is a 89 year old male with a recent esophageal cancer diagnosis (April 2025) that was brought in by his niece on 07/15 due to acute hypotension secondary to deliberate medication overdose. Deliberate medication overdose 07/15 PM note - He took 3 x amlodipine 10 mg tablets (30 mg) 10pm 07/14 saying that he "wanted to know what it would feel like to ." He states that he still wants to , and considered the overdose on 07/14 to be a "trial run" to test his limit. He says that he "feels stupid for attempting without succeeding." He plans to "take a whole bottle" in the future or attempt starvation. He does not want to live longer than 2 months. Mental Health Started having thoughts of suicide a couple years ago that became constant after receiving his cancer diagnosis this April. The cancer diagnosis in addition to his exertional dyspnea from COPD has made life restrictive. He feels that he has lived a good and full life and wants to on his own terms. He wants to " before things get too difficult." He doesn't want to put himself or loved ones through late stage cancer and COPD. His main concerns are long-term care, pain, and being a burden for his family. He wants to pursue hospice and with dignity. Acute hypotension Secondary to deliberate medication overdose. Denies light-headedness or somnolence. Denies dizziness or headache. Denies nausea/vomiting. Esophageal Cancer He was diagnosed with esophageal cancer in April 2025. He is scheduled for his third immunotherapy infusion at Friday, 07/18. He does not want to continue to receive infusions. He has a CT to assess cancer prognosis the first week in July (in 10 days). - He is able to swallow mashed potatoes and apple sauce, sometimes soft carrots or meats. He likes to drink fruit smoothies. He anticipates the progression of the cancer and does not want to struggle through late stage illness. COPD Pt has a history of COPD that was first documented in 03/2017. For which he has been prescribed a fluticasone-salmeterol BID and albuterol PRN inhalers that he uses as prescribed. He does not use O2 at home. He has frequent exertional dyspnea that makes it difficult for him to leave home. He is not able to do the things he used to. He is too weak to leave the house. He denies chest tightness. He reports feeling intermittent heartburn. Pt reports he has POLST. No records on file. POLST and DPOA records requested. Current Medications Current Medications Current Medications: Current Medications Generic Name Dose Route Start Last Admin Trade Name Freq PRN Reason Stop Dose Admin Acetaminophen 650 mg 07/15/25 17:32 Acetaminophen 325 Mg Tablet PO Q4HR PRN Pain 1 to 4, or Fever Al Hydroxide/Mg Hydroxide 30 ml 07/15/25 18:54 07/16/25 02:59 Mag Hydrox/Al Hydrox/Simeth 30 Ml Udc PO 30 ml Q4HR PRN Administration INDIGESTION Albuterol/Ipratropium 3 ml 07/15/25 17:32 07/15/25 20:04 Ipratropium/Albuterol 3 Ml Neb INH 3 ml Q4HR PRN Administration Wheezing Budesonide 0.5 mg 07/15/25 19:00 07/16/25 07:18 Budesonide 0.5 Mg/2 Ml Neb INH 0.5 mg RTBID CHIKA Administration Enoxaparin Sodium 30 mg 07/16/25 09:00 Enoxaparin 30 Mg/0.3 Ml Syringe SUBQ DAILY CHIKA Formoterol Fumarate 20 mcg 07/15/25 19:00 07/16/25 07:18 Formoterol Fumarate Neb 20 Mcg/2 Ml INH 20 mcg RTBID CHIKA Administration Lactated Ringer's 1,000 mls @ 150 mls/hr 07/15/25 17:32 07/16/25 05:46 Lr IV 100 mls/hr .[id number] [facility] Administration Lidocaine HCl 5 ml 07/15/25 18:55 Lidocaine Viscous 2% 15 Ml Udc MM Q4H PRN Mouth Sore Pain Ondansetron HCl 4 mg 07/15/25 17:32 Ondansetron Odt 4 Mg Tablet TL Q6HR PRN Nausea / Vomiting Ondansetron HCl 4 mg 07/15/25 17:32 Ondansetron 4 Mg/2 Ml Vial IVP Q6HR PRN Nausea / Vomiting Prednisone 40 mg 07/16/25 08:00 Prednisone 20 Mg Tablet PO DAILYWM [facility] Sodium Chloride 10 ml 07/15/25 17:32 Sodium Chloride Flush 0.9% 10 Ml Syringe IVP PRN PRN NEEDED PER PROVIDER ORDERS Sodium Chloride 10 ml 07/15/25 17:32 07/16/25 00:29 Sodium Chloride Flush 0.9% 10 Ml Syringe IVP Not Given 0100,0900,1700 [facility] Objective Vital Signs/Intake & Output Reviewed Vital Signs: Yes Vital Signs: Vital Signs x48h Temp Pulse Pulse Resp BP Pulse Ox O2 Flow Rate 07/16/25 07:49 36.6 C 76 20 98/50 L 91 L 1 07/16/25 07:19 2 07/16/25 07:19 78 20 07/16/25 05:00 37.1 C 72 20 94/56 L 97 2 Intake & Output: Intake & Output 07/13/25 07/14/25 07/15/25 07/16/25 23:59 23:59 23:59 23:59 Intake Total 1622 / 1622 1368 / 1368 Output Total 100 / 100 300 / 300 Balance 1522 / 1522 1068 / 1068 Weight (kg) 57.8 kg Objective General Appearance: positive No acute distress and Alert Respiratory: positive Chest non-tender, No respiratory distress and Wheezes (expiratory wheezes); negative Breath sounds nml, Rales or Rhonchi Cardiovascular: positive Regular rate & rhythm, No murmur and No gallop; negative Friction rub Abdomen: positive Non-tender; negative No distention or Guarding Skin: positive Color nml Neurologic/Psychiatric: positive Oriented x3 Lab Results 07/16/25 05:38 07/16/25 13:54 Other Labs: Lab Results x24hrs 07/16/25 07/16/25 07/15/25 Range/Units 06:16 05:38 22:12 WBC 14.3 H (4.8-10.8) x10^3/uL RBC 3.08 L (4.70-6.10) 10^6/uL Hgb 8.9 L (14.0-18.0) g/dL Hct 28.2 L (42.0-52.0) % MCV 91.6 (80.0-94.0) fL MCH 28.9 (27.0-31.0) pg MCHC 31.6 L (32.0-36.0) g/dL RDW 14.4 (12.0-15.0) % Plt Count 431 (130-450) 10^3/uL MPV 9.2 (7.4-11.4) fL Neut # (Auto) 13.0 H (1.5-6.6) 10^3/uL Lymph # (Auto) 0.9 L (1.5-3.5) 10^3/uL Anderson # (Auto) 0.3 (0.0-1.0) 10^3/uL Eos # (Auto) 0.0 (0.0-0.7) 10^3/uL Baso # (Auto) 0.0 (0.0-0.1) 10^3/uL Absolute Nucleated RBC 0.00 x10^3/uL Nucleated RBC % 0.0 /100WBC Sodium 128 L (135-145) mmol/L Potassium 4.2 (3.5-4.5) mmol/L Chloride 95 L (101-111) mmol/L Carbon Dioxide 25 (21-32) mmol/L Anion Gap 8.0 (6-13) BUN 63 H (6-20) mg/dL Creatinine 2.1 H (0.6-1.3) mg/dL Estimated GFR (MDRD) 30 L (>89) Glucose 156 H (74-104) mg/dL Calcium 10.2 (8.5-10.3) mg/dL Total Bilirubin (0.2-1.0) mg/dL AST (10-42) IU/L ALT (10-60) IU/L Alkaline Phosphatase (42-121) IU/L Total Creatine Kinase 28 L (30-223) IU/L Troponin I High Sens (2.3-19.7) ng/L B-Natriuretic Peptide (5-100) pg/mL Total Protein (6.4-8.9) g/dL Albumin (3.2-5.5) g/dL Globulin (2.1-4.2) g/dL Albumin/Globulin Ratio (1.0-2.2) Lipase (11-82) U/L TSH 7.91 H (0.34-5.60) uIU/mL Free T4 Direct 1.14 (0.58-1.64) ng/dL Urine Color YELLOW Urine Clarity CLEAR (CLEAR) Urine pH 5.5 (5.0-7.5) PH Ur Specific Carleton 1.020 (1.002-1.030) Urine Protein TRACE (NEGATIVE) mg/dL Urine Glucose (UA) NEGATIVE (NEGATIVE) mg/dL Urine Ketones NEGATIVE (NEGATIVE) mg/dL Urine Occult Blood NEGATIVE (NEGATIVE) Urine Nitrite NEGATIVE (NEGATIVE) Urine Bilirubin NEGATIVE (NEGATIVE) Urine Urobilinogen 0.2 (NORMAL) (NORMAL) E.U./dL Ur Leukocyte Esterase NEGATIVE (NEGATIVE) Ur Microscopic Review NOT INDICATED Urine Culture Comments NOT INDICATED Salicylates mg/dL Urine Opiates Screen NEGATIVE (NEGATIVE) Ur Buprenorphine Scrn NEGATIVE (NEGATIVE) Ur Oxycodone Screen NEGATIVE (NEGATIVE) Urine Methadone Screen NEGATIVE (NEGATIVE) Urine Fentanyl Screen Negative (NEGATIVE) Acetaminophen ug/mL Ur Barbiturates Screen NEGATIVE (NEGATIVE) Ur Tricyclics Screen NEGATIVE (NEGATIVE) Ur Phencyclidine Scrn NEGATIVE (NEGATIVE) Ur Amphetamine Screen NEGATIVE (NEGATIVE) U Methamphetamines Scrn NEGATIVE (NEGATIVE) U Benzodiazepines Scrn NEGATIVE (NEGATIVE) Urine Cocaine Screen NEGATIVE (NEGATIVE) U Cannabinoids Screen NEGATIVE (NEGATIVE) Ur Drug Screen Comment CUTOFF CONC BELOW: Ethyl Alcohol < 10.0 mg/dL SARS-CoV-2 (PCR) NOT DETECTED 07/15/25 Range/Units 12:33 WBC 14.6 H (4.8-10.8) x10^3/uL RBC 3.51 L (4.70-6.10) 10^6/uL Hgb 10.1 L (14.0-18.0) g/dL Hct 32.5 L (42.0-52.0) % MCV 92.6 (80.0-94.0) fL MCH 28.8 (27.0-31.0) pg MCHC 31.1 L (32.0-36.0) g/dL RDW 14.5 (12.0-15.0) % Plt Count 507 H (130-450) 10^3/uL MPV 9.2 (7.4-11.4) fL Neut # (Auto) 12.7 H (1.5-6.6) 10^3/uL Lymph # (Auto) 0.8 L (1.5-3.5) 10^3/uL Anderson # (Auto) 1.0 (0.0-1.0) 10^3/uL Eos # (Auto) 0.0 (0.0-0.7) 10^3/uL Baso # (Auto) 0.0 (0.0-0.1) 10^3/uL Absolute Nucleated RBC 0.00 x10^3/uL Nucleated RBC % 0.0 /100WBC Sodium 131 L (135-145) mmol/L Potassium 4.1 (3.5-4.5) mmol/L Chloride 97 L (101-111) mmol/L Carbon Dioxide 25 (21-32) mmol/L Anion Gap 9.0 (6-13) BUN 40 H (6-20) mg/dL Creatinine 1.8 H (0.6-1.3) mg/dL Estimated GFR (MDRD) 36 L (>89) Glucose 161 H (74-104) mg/dL Calcium 10.6 H (8.5-10.3) mg/dL Total Bilirubin 0.3 (0.2-1.0) mg/dL AST 20 (10-42) IU/L ALT 9 L (10-60) IU/L Alkaline Phosphatase 69 (42-121) IU/L Total Creatine Kinase (30-223) IU/L Troponin I High Sens 8.4 (2.3-19.7) ng/L B-Natriuretic Peptide 126 H (5-100) pg/mL Total Protein 6.1 L (6.4-8.9) g/dL Albumin 3.1 L (3.2-5.5) g/dL Globulin 3.0 (2.1-4.2) g/dL Albumin/Globulin Ratio 1.0 (1.0-2.2) Lipase 33 (11-82) U/L TSH (0.34-5.60) uIU/mL Free T4 Direct (0.58-1.64) ng/dL Urine Color Urine Clarity (CLEAR) Urine pH (5.0-7.5) PH Ur Specific Carleton (1.002-1.030) Urine Protein (NEGATIVE) mg/dL Urine Glucose (UA) (NEGATIVE) mg/dL Urine Ketones (NEGATIVE) mg/dL Urine Occult Blood (NEGATIVE) Urine Nitrite (NEGATIVE) Urine Bilirubin (NEGATIVE) Urine Urobilinogen (NORMAL) E.U./dL Ur Leukocyte Esterase (NEGATIVE) Ur Microscopic Review Urine Culture Comments Salicylates < 1.5 mg/dL Urine Opiates Screen (NEGATIVE) Ur Buprenorphine Scrn (NEGATIVE) Ur Oxycodone Screen (NEGATIVE) Urine Methadone Screen (NEGATIVE) Urine Fentanyl Screen (NEGATIVE) Acetaminophen < 0.1 ug/mL Ur Barbiturates Screen (NEGATIVE) Ur Tricyclics Screen (NEGATIVE) Ur Phencyclidine Scrn (NEGATIVE) Ur Amphetamine Screen (NEGATIVE) U Methamphetamines Scrn (NEGATIVE) U Benzodiazepines Scrn (NEGATIVE) Urine Cocaine Screen (NEGATIVE) U Cannabinoids Screen (NEGATIVE) Ur Drug Screen Comment Ethyl Alcohol mg/dL SARS-CoV-2 (PCR) Assessment/Plan Problem List (1) Deliberate medication overdose: Impression: Patient presented to ER 07/15 with niece after ingesting 30 mg of amlodipine on 07/14 2200. Poison control contacted by ED RN 07/15. Poison control advised fluid maintenance, pressers PRN, EKG, and continue to monitor vitals. Patient currently alert and oriented x 4. BP remains hypotensive. Pt reports active suicidality. - EKG obtained 07/15 PM - Administer fluids: 150 mL/hr - Continue monitoring vitals. - Observation: 1:1 due to current suicidality - SW to meet with patient later today (07/16) to discuss hospice, with dignity, and other end of life care options Qualifiers: Encounter type: initial encounter Qualified Code(s): T50.902A - Poisoning by unspecified drugs, medicaments and biological substances, intentional self-harm, initial encounter (2) Acute hypotension: Impression: Secondary to deliberate medication overdose. See notes above. - 1L/hr bolus x 1 - Consider pressers if BP drops (3) Esophageal cancer: Impression: Pt diagnosed in April 2025. Reports dysphagia. Receiving care at . Chemo infusion scheduled for 07/18. CT to determine prognosis scheduled for first week in July. - Diet: minced and moist - Consult: Speech for swallow testing - Continue monitoring vitals as above - Continue fluids as above (4) Moderate COPD (chronic obstructive pulmonary disease): Impression: Expiratory wheezes heard on auscultation. Chest X-ray obtained, radiologist impression: "Small left and trace right pleural effusion with bilateral mid and lower lobe airspace opacities and cephalization the pulmonary vasculature. Findings are concerning for pulmonary edema" - prednisone 40 mg PO daily - budesonide and formoteral inhalers BID - ipratropium/albuterol PRN - 2L O2 nc PRN - Monitor O2. Maintain SpO2 > 88 %, 89-91% OK (5) Acute kidney injury: Impression: Elevated creatinine 1.8 and 2.1 - continue fluids as above (6) Hyponatremia: Impression: Sodium of 131 and 128 - NS administered
[2025-07-16] MEDS: ENOXAPARIN 30 MG/0.3 ML SYRINGE SUBQ SCH (08:50)
--- NOTE | 2025-07-16 09:41 | PHARMACY PROGRESS NOTE ---
Best Possible Medication History Admit Date and Time: 07/15/25 1614 Home Medications Medication Instructions Recorded Confirmed Type albuterol sulfate 90 mcg/actuation 2 inh inhalation TI D PRN shortness 10/04/24 07/16/25 History aerosol inhaler (ProAir HFA) of breath or wheezing fluticasone 250 mcg-salmeterol 50 1 inh inhalation BID 02/21/25 07/16/25 History mcg/dose blistr powdr for inhalation umeclidinium 62.5 mcg/actuation 1 inh inhalation DAILY 02/21/25 07/16/25 History blister powder for inhalation (Incruse Ellipta) amlodipine 10 mg tablet (Norvasc) 10 mg PO DAILY 07/1607/16/25 History guaifenesin 200 mg tablet 200 mg PO TID PRN congestion 07/16/25 07/16/25 History (Expectorant) levothyroxine 88 mcg tablet 88 mcg PO QDAC 07/16/25 History (Levoxyl) losartan 100 1 tab PO DAILY 07/16/2506/23 History mg-hydrochlorothiazide 25 mg tablet Processed by: Pharmacy Medications reviewed in ED?: No Medication History completed: Yes Patient Interview: Completed Secondary Source(s): Pharmacy records and Insurance records [facility] Statement: As the person ultimately responsible for medication therapy, providers are able to order a medication from an existing home medication list in [facility] via the "Reconcile Routine" prior to Confirmation of that medication by product support consultant. Such practice is discouraged except when the physician, in their clinical judgment, deems that a medical need exists for a medication without regard to previous use.
[2025-07-16] MEDS: SODIUM CHLORIDE 0.9% 1,000 ML IV ONE (11:37)
[2025-07-16 14:16] LABS: BUN - BLOOD UREA NITROGEN 68.0 mg/dL (6-20); CARBON DIOXIDE - CO2 24.0 mmol/L (21-32); CREATININE 2.1 mg/dL (0.6-1.3); GFR - MDRD 30.0 (>89)
--- NOTE | 2025-07-16 14:49 | XRAY Report ---
PROCEDURE: XR Chest 1V INDICATIONS: dyspnea TECHNIQUE: One view of the chest was acquired. COMPARISON: 07/15/2025 FINDINGS: Surgical changes and devices: None. Lungs and pleura: Small bilateral pleural effusions. Increased interstitial markings in the lower lung lucas. Mediastinum: Mediastinal contours appear normal. Heart size is normal. Bones and chest wall: No suspicious bony lesions. Overlying soft tissues appear unremarkable. IMPRESSION: Small bilateral pleural effusions with increased interstitial markings in the lower lung lucas, concerning for pulmonary edema. Findings are increased compared to prior. Reviewed by: Donald Riley MD on 07/16/2025 2:46 PM PDT Approved by: Donald Riley MD on 07/16/2025 2:46 PM PDT Station ID: [id number]
[2025-07-16] MEDS: FUROSEMIDE 40 MG/4 ML VIAL IVP STA (15:53)
[2025-07-16] MEDS: ALBUMIN 25% 12.5 GM/50 ML VIAL IV STA (15:57)
[2025-07-16 16:34] VITALS: O2SAT 92
--- NOTE | 2025-07-16 17:25 | ADVANCE CARE PLANNING NOTE ---
Advance Care Planning Planning Encounter Date: 07/16/25 Time: 11:00 Purpose: To further discuss goals of care Parties in Attendance: I spoke with the patient one-on-one, then with niece/DPOA. Also had multiple conversations including social work Decisional Capacity of the Patient: Full Diagnosis for Encounter (1) Deliberate medication overdose: Qualifiers: Encounter type: initial encounter Qualified Code(s): T50.902A - Poisoning by unspecified drugs, medicaments and biological substances, intentional self-harm, initial encounter Summary: We are now out of the observation window for his amlodipine overdose. He is still hypotensive, and has an acute kidney injury secondary to this (2) Esophageal cancer: Summary: Recent diagnosis of esophageal adenocarcinoma. Records requested from [facility]. He has had 3 doses of Keytruda, has another dose scheduled on 07/18 and follow-up CTs 10 days from now (3) Moderate COPD (chronic obstructive pulmonary disease): Summary: COPD limiting his activity. Between the COPD and the poor appetite, he is unable to ambulate outside the room (4) Acute kidney injury: Summary: Secondary to overdose/hypotension Encounter Subjective/Patient's Story: Patient reports he is at a full life, and he is okay with dying. He reports that he has poor quality of life secondary to swallowing difficulty and difficulty breathing Objective/Medical Story: Recent diagnosis of esophageal adenocarcinoma, receiving treatment at [facility] Goals of Care: Patient reports that he and his family have had discussions about this several times over the past few years. He stated that everyone is comfortable with him pursuing medical assistance in dying if he were ever in a spot where he has no quality of life. He believes that he is at this point now Plan: I discussed the conversation that I had with the patient with his niece/DPOA as well as with social work. Patient and DPOA are in agreement that he would like to transition to hospice care. I am continuing his steroid and starting some diuresis just to optimize his respiratory status and promote comfort as we send him home to await hospice placement Additional Discussion: Follow-up with hospice Code Status: Do Not Attempt Resuscitation Time spent on advance care plannin
--- NOTE | 2025-07-16 17:44 | Discharge Summary ---
Discharge Summary Admit Date: 07/15/25 Discharge Date: 07/16/25 Discharging Provider: Floyd Beavers Primary Care Provider: Lizeth Nicholas Code Status: Do Not Attempt Resuscitation DIAGNOSES Discharge Diagnoses with Status of Each Condition: Deliberate medication overdose Out of observation window Acute hypotension-Secondary to OD Esophageal cancer Received a few treatments of Keytruda from [facility]. His cancer is keeping him from swallowing solid food, and patient has elected to go on hospice Acute kidney injury- Hospice HPI History of Present Illness: Negrito is a 89 year old male with a recent esophageal cancer diagnosis (April 2025) that came in today due to acute hypotension secondary to deliberate medication overdose. Deliberate medication overdose - Suicidality He took 3 x amlodipine 10 mg tablets (30 mg) 10pm 07/14 saying that he "wanted to know what it would feel like to ." He states that he still wants to , and considered the overdose today to be a "trial run." He plans to "take a whole bottle" in the future. He is scheduled for chemo-infusion at [facility] Friday, 07/18. He has a CT to assess cancer prognosis the first week in July (in 10 days). Per RN convos with poison control: "Maintenance dose of fluids, pressers as needed. 12 hour monitor time. Patient family report medication overdose occurred about 2200 last night." "Advises to continue to monitor. Obtain EKG. consider pressers as Creatnine is elevated, concerned for renal profusion. continue to address BP and monitor for return to baseline." Suicidal Ideation He has been feeling hopeless since receiving his cancer diagnosis this April. That combined with his exertional dyspnea from COPD has made life less enjoyable. He feels limited in what he can do because of the COPD exacerbations with exertion and his difficulty swallowing from esophageal cancer. - He is too weak to leave the house. He can do puzzles at home, but is not able to enjoy the hobbies that he used to. - He is able to swallow mashed potatoes and apple sauce, sometimes soft carrots or meats. He feels unable to enjoy the foods he used to. Acute hypotension Secondary to deliberate medication overdose. Pt denies light-headedness or somnolence COPD Pt has a history of COPD that was first documented 03/2017. For which he has been prescribed a fluticasone-salmeterol BID and albuterol PRN inhalers. He does not use O2 at home. He has frequent exertional dyspnea that makes it difficult for him to leave home. He is not able to do the things he used to. He denies chest tightness. He reports feeling heartburn. Niece, DPJAHAIRA, present at bedside. Pt reports he has POLST. No records on file. We will request records of POLST and DPOA. HOSPITAL COURSE Hospital Course: Patient was placed in observation and started on IV fluids as directed by poison control. He was evaluated by social work, who brought his case before the state to determine if he should be detained. Patient is terminally ill, and wishes to go out on his own terms. Safety plan was agreed upon with family. He did develop a acute kidney injury, and fluids were administered. He is fluid overloaded, causing some dyspnea. I gave him albumin and Lasix and this has improved. I am discharging him home awaiting hospice placement for his esophageal cancer. I have ordered prednisone burst to help improve his work of breathing. Other comfort meds ordered. Patient has follow-up with hospice. He is being discharged with family, who will help care for him and will manage all of his medications. Patient still believes that he has no quality of life, but is willing to enroll in hospice and go through the proper channels for with dignity ALLERGIES Allergies Allergy/AdvReac Type Severity Reaction Status Date / Time No Known Drug Allergies Allergy Verified 07/15/25 12:25 MEDICATIONS Ambulatory Orders Medication Instructions Recorded Confirmed albuterol sulfate 90 mcg/actuation 2 inh inhalation TI D PRN shortness 10/04/24 07/16/25 aerosol inhaler (ProAir HFA) of breath or wheezing fluticasone 250 mcg-salmeterol 50 1 inh inhalation BID 02/21/25 07/16/25 mcg/dose blistr powdr for inhalation umeclidinium 62.5 mcg/actuation 1 inh inhalation DAILY 02/21/25 07/16/25 blister powder for inhalation (Incruse Ellipta) aluminum-mag hydroxide-simethicone 30 ml PO Q4HR PRN I ndigestion 30 07/16/25 200 mg-200 mg-20 mg/5 mL oral susp days #3,000 mL (Mag-Al Plus) bisacodyl 10 mg rectal suppository 10 mg AR DAILY PRN Constipation #3 07/16/25 (Dulcolax (bisacodyl)) ea guaifenesin 200 mg tablet 200 mg PO TID PRN congestion 07/16/25 07/16/25 (Expectorant) lidocaine HCl 2 % mucosal solution 5 ml mucous membran e Q4H PRN Mouth 07/16/25 Sore Pain #100 mL lorazepam 0.5 mg tablet (Ativan) 0.5 mg PO Q6H PRN Anx iety #10 tabs 07/16/25 morphine concentrate 100 mg/5 mL 5 mg (0.25 mL) PO Q4H PRN pain or 07/16/25 (20 mg/mL) oral solution breathlessness #30 mL olanzapine 5 mg disintegrating 5 mg PO DAILY PRN Agit ation, 07/16/25 tablet (Zyprexa Zydis) nausea and vomiting #10 tabs prednisone 20 mg tablet 40 mg (2 x 20 mg) PO DAILYWM 2 07/16/25 days #4 tabs sennosides 8.6 mg tablet (senna) 8.6 mg PO BID PRN Con stipation #10 07/16/25 tabs PHYSICAL EXAM AT DISCHARGE Vital Signs: Vital Signs x48h Temp Pulse Pulse Resp BP BP Pulse Ox 07/16/25 16:32 36.4 C L 74 22 89/60 L 92 07/16/25 13:55 78 22 07/16/25 13:35 36.7 C 70 22 88/51 L 93 07/16/25 11:40 37.0 C 69 20 93/47 L 97 O2 Flow Rate 07/16/25 16:32 2 07/16/25 13:55 07/16/25 13:35 1 07/16/25 11:40 2 Physical Exam Other/Comments: Constitutional normal general appearance, no apparent distress, average body habitus and alert Respiratory Expiratory wheezes, some increase in work of breathing Cardiovascular normal heart rate noted, regular rhythm noted, no gallop, no rub, no murmur and no JVD Gastrointestinal abdomen soft to palpation and nontender to palpation Psychiatry oriented x3 and cooperative Skin skin color normal LABS 07/16/25 05:38 07/16/25 13:54 FOLLOW UP Follow Up: With hospice TIME SPENT Time Spent in Discharge (Minutes): 35 Discharge Plan Discharge Patient Disposition: 50 Hospice/Home DC/Xfer Condition: Stable Prescriptions: New prednisone 20 mg Tablet 40 mg PO DAILYWM 2 Days Qty: 4 0RF alum-mag hydroxide-simeth [Mag-Al Plus] 200-200-20 mg/5 mL Suspension 30 ml PO Q4HR PRN (Reason: Indigestion) 30 Days Qty: 3000 0RF lidocaine HCl 2 % Solution 5 ml mucous membrane Q4H PRN (Reason: Mouth Sore Pain) Qty: 100 0RF sennosides [senna] 8.6 mg Tablet 8.6 mg PO BID PRN (Reason: Constipation) Qty: 10 0RF Rx Instructions: Take one tablet, by mouth, twice a day as needed for constipation. morphine concentrate 100 mg/5 mL (20 mg/mL) Solution 5 mg PO Q4H PRN (Reason: pain or breathlessness) Qty: 30 0RF Rx Instructions: Take 0.25 ml (equal to 5 mg) by mouth, or under the tongue, every 4 hours as needed for moderate to severe pain. lorazepam [Ativan] 0.5 mg Tablet 0.5 mg PO Q6H PRN (Reason: Anxiety) Qty: 10 0RF Rx Instructions: Take one tablet, by mouth, every 6 hours as needed for anxiety. bisacodyl [Dulcolax (bisacodyl)] 10 mg Suppository 10 mg AR DAILY PRN (Reason: Constipation) Qty: 3 0RF Rx Instructions: Unwrap and insert one suppository rectally daily, as needed for constipation. olanzapine [Zyprexa Zydis] 5 mg Tablet,Disintegrating 5 mg PO DAILY PRN (Reason: Agitation, nausea and vomiting) Qty: 10 0RF Rx Instructions: Dissolve one tablet, in mouth, twice daily as needed for agitation or nausea and/or vomiting. Continued albuterol sulfate [ProAir HFA] 90 mcg/actuation HFA aerosol inhaler 2 inh inhalation TID PRN (Reason: shortness of breath or wheezing) guaifenesin [Expectorant] 200 mg tablet 200 mg PO TID PRN (Reason: congestion) fluticasone propion-salmeterol 250-50 mcg/dose blister with device 1 inh inhalation BID Incruse Ellipta 62.5 mcg/actuation blister with device 1 inh inhalation DAILY Discontinued losartan-hydrochlorothiazide 100-25 mg tablet 1 tab PO DAILY levothyroxine [Levoxyl] 88 mcg tablet 88 mcg PO QDAC amlodipine [Norvasc] 10 mg tablet 10 mg PO DAILY Activity Restrictions: Activity as Tolerated Diet: Regular Health Concerns: You were brought into the hospital after an intentional overdose of your amlodipine. You were monitored as directed by poison control and given IV fluids. You still have a low blood pressure, and you still have some acute injury to your kidneys because of this. You have history of esophageal cancer, and have elected to go home on hospice. I have sent some medications to help keep you comfortable as you transition into hospice. If you have any difficulty breathing, please continue to use your home inhaler regimen as you normally would. If this does not manage it, the morphine have ordered will help a lot with this. I am discontinuing your blood pressure medications primarily because they are unnecessary but also because your blood pressure is low. The hospice team will meet with you to determine the plan going forward. Your family has been charged with assisting with your care. They will help you with your medications, and help to keep you comfortable. Please reach out if you continue to have suicidal ideation. You are dying, but I would like for you to with some dignity Print Language: Romanian Patient Instructions: Hospice Care Dyspnea Stand Alone Forms: PCP List Follow-up Care: Lizeth Nicholas ARNP [Primary Care Provider, Family Practice] Vitals documented within 30 minutes of discharge?: Yes
[2025-07-16 20:22] VITALS: BP 97/57; TEMP 97.3
== END 2025-07-16 19:00 | disposition hospice, home (50) | DRG 191 ==
LOC: MS2 11:20 → ED 11:20 → MS2 17:56
PROVIDERS: ADMIT Nurse Practitioner Acute Care; ATTEND Nurse Practitioner Acute Care
DX: N17.9 Acute kidney failure, unspecified; Z87.891 Personal history of nicotine dependence; Z66 Do not resuscitate; R09.02 Hypoxemia; Y92.9 Unspecified place or not applicable; D64.9 Anemia, unspecified; H91.8X9 Other specified hearing loss, unspecified ear; C15.9 Malignant neoplasm of esophagus, unspecified; E87.1 Hypo-osmolality and hyponatremia; T46.1X2A Poisoning by calcium-channel blockers, intentional self-harm, initial encounter; H91.90 Unspecified hearing loss, unspecified ear; Z80.3 Family history of malignant neoplasm of breast; R45.851 Suicidal ideations; J44.9 Chronic obstructive pulmonary disease, unspecified; R13.10 Dysphagia, unspecified; I95.2 Hypotension due to drugs; Y92.009 Unspecified place in unspecified non-institutional (private) residence as the place of occurrence of the external cause; E03.9 Hypothyroidism, unspecified; Z96.89 Presence of other specified functional implants